=== PATIENT | female | born 1955 | race Caucasian/White ===

== ENCOUNTER 2016-10-31 11:54 | Inpatient (IN) | payer OTHER ==
[~2016-10-31] VITALS: Ht 162.6 cm; Wt 67.4 kg
[~2016-10-31 11:54] MED LIST: AMIT100T2 PO; BUPR-79 PO; IBUP-103 PO
[2016-10-31 12:35] LABS: BASO % 0.5 %; BASO ABS # 0.03 K/uL (0-0.2); COMPLETE YES; EOS % 1.9 %; HEMATOCRIT 42.1 % (37-47); IG% 0.2 %; LYMPH % 27.6 %; LYMPH ABS # 1.62 K/uL (1.2-3.4); MEAN CELL VOLUME 82.5 fL (80-100); MEAN CORPUSCULAR HEMOGLOBIN 26.5 pg (25-34); MEAN CORPUSCULAR HGB CONC 32.1 g/dl (32-36); MEAN PLATELET VOLUME 11.3 fL (7.4-10.4); MONO % 10.1 %; NEUT % 59.7 %; PLATELET COUNT 263 K/uL (130-400); WHITE BLOOD COUNT 5.86 K/uL (4.8-10.8)
[2016-10-31 12:43] LABS: ALT/SGPT 19 U/L (12-78); BLOOD UREA NITROGEN 6 mg/dl (7-18); BUN/CREATININE RATIO 6.6 (10-20); CALCIUM 9.7 mg/dl (8.5-10.1); CARBON DIOXIDE 25 mmol/L (21-32); CHLORIDE 106 mmol/L (98-107); CREATININE 0.88 mg/dl (0.60-1.20); GLUCOSE 87 mg/dl (70-99); POTASSIUM 3.7 mmol/L (3.5-5.1); SODIUM 142 mmol/L (136-145)
[2016-10-31 12:48] LABS: ALKALINE PHOSPHATASE 78 U/L (45-117); AST/SGOT 13 U/L (15-37)
[2016-10-31 12:50] LABS: MANUAL MICROSCOPIC REQUIRED? NO; REVIEW REQ? NO; URINE APPEARANCE CLEAR (CLEAR); URINE BILIRUBIN NEG (NEG); URINE COLOR YELLOW; URINE NITRITE NEG (NEG); URINE SPECIFIC GRAVITY 1.002 (1.000-1.030); UROBILINOGEN NEG (NEG); ZZUR CULT IF INDIC CLEAN CATCH NO
--- NOTE | 2016-10-31 12:54 | DIAGNOSTIC IMAGING REPORT ---
CHEST ONE VIEW PORTABLE CLINICAL HISTORY: multiple falls trauma COMPARISON STUDY: No previous studies for comparison. FINDINGS: The bones soft tissues and hemidiaphragms are normal. The cardiomediastinal silhouette is normal. The lungs are clear. The pulmonary vasculature is normal. IMPRESSION: Negative chest. Electronically signed by: Antwan Ewing M.D. 10/31/2016 12:53 PM Dictated Date/Time: 10/31/2016 12:53 PM
[2016-10-31] MEDS ORDERED: WLLSR/200 PO (12:56)
--- NOTE | 2016-10-31 13:48 | DIAGNOSTIC IMAGING REPORT ---
HEAD CT NONCONTRAST CT DOSE: 537.48 mGy.cm HISTORY: Mental status change confused w/ multiple fall TECHNIQUE: Multiaxial CT images of the head were performed without the use of intravenous contrast. Comparison: None. Findings: The paranasal sinuses and mastoid air cells are clear. The calvarium and skull base are intact. The ventricles and sulci are within normal limits. There is no mass, hematoma, midline shift, or acute infarct. Impression: No acute intracranial abnormality. Electronically signed by: Antwan Ewing M.D. 10/31/2016 1:46 PM Dictated Date/Time: 10/31/2016 1:45 PM
[2016-10-31] MEDS ORDERED: ACETAMINOPHEN 325 MG TAB PO PRN (15:15)
[2016-10-31] MEDS ORDERED: ONDANSETRON INJ 2 MG/ML 2 ML VIAL IV PRN (15:15)
[2016-10-31] MEDS ORDERED: POLYETHYLENE (MIRALAX) 17 GM PACK PO PRN (15:15)
[2016-10-31 15:30] VITALS: O2SAT 94; Ht 162.6 cm; Wt 67.4 kg
[2016-10-31 16:00] VITALS: O2SAT 94
[2016-10-31 16:59] VITALS: BP 142/90; PULSE 80; TEMP 36.6; O2SAT 96
[2016-10-31 16:59] LABS: PROTHROMBIN TIME (PATIENT) 10.4 SECONDS (9.0-12.0)
[2016-10-31] MEDS: ENOXAPARIN 40 MG/0.4 ML SYR SC SCH (18:28)
--- NOTE | 2016-10-31 18:51 | EMERGENCY ROOM VISIT NOTE ---
History Report prepared by Zeus: Ventura eMderos Under the Supervision of: Dr. Davian Brennan D.O. First contact with patient: 12:16 Chief Complaint: NEURO SYMPTOMS Stated Complaint: FALLING DOWN, CONFUSION, SHAKING, TROUBLE W/MEMORY Nursing Triage Summary: pt reports falling yesterday 7 times and feeling dizzy not able to spell or function properly. headache for last couple days intermittently. normally does not have headaches. denies any n/v History of Present Illness The patient is a 61 year old female who presents to the Emergency Room with complaints of persistent neuro symptoms beginning yesterday. She notes that yesterday she was talking with her daughter on the phone and had difficulty concentrating on the subject they were talking about. She admits also having difficulty spelling and felt dizzy at times. She reports falling 7 times yesterday and was "running into things" at work. She notes she fell on her back and not her head, and was able to get herself up after the falls. She was seen by a doctor at [facility] who told her to come to the ER. The patient denies having difficulty speaking, chest pain, shortness of breath, urinary symptoms, nausea, vomiting, or weakness or numbness in her arms or legs. Per the patient' s , she is confused and has difficultly following along in conversation. The patient admits to having sore throats in the morning that resolves throughout the day, and headaches off and on for two weeks. She adds that she does not normally get headaches at baseline. She denies any history of strokes, high cholesterol, and diabetes. Source of History: patient, spouse/significant other Onset: yesterday Position: head Quality: other (neuro symptoms) Timing: other (persistent) Associated Symptoms: + headache, + sorethroat, No SOB, No chest pain, No nausea, No numbness, No urinary symptoms, No vomiting, No weakness Review of Systems See HPI for pertinent positives & negatives. A total of 10 systems reviewed and were otherwise negative. Past Medical & Surgical Medical Problems: (1) Confusion Surgical Problems: (1) S/P cervical spinal fusion Social History Smoking Status: Never Smoker Marital Status: Housing Status: lives with family Occupation Status: disabled Current/Historical Medications Scheduled Amitriptyline Hcl (Elavil), 200 MG PO HS Bupropion Hcl (Wellbutrin Sr), 1 TAB PO BID Allergies Coded Allergies: No Known Allergies (Unverified , 05/14/14) Physical Exam Vital Signs Date Time Temp Pulse Resp B/P Pulse Ox O2 Delivery O2 Flow Rate FiO2 10/31/16 13:46 75 24 135/74 92 Room Air 10/31/16 12:54 76 10/31/16 12:17 77 18 150/88 94 Room Air 10/31/16 12:17 92 Room Air 10/31/16 11:56 36.6 78 18 159/87 94 Room Air Physical Exam GENERAL: Sitting in bed, disheveled, alert, well appearing, well nourished, no distress, non-toxic EYE EXAM: normal conjunctiva, PERRL and EOM's intact EARS: TMs clear bilaterally OROPHARYNX: no exudate, no erythema, lips, buccal mucosa, and tongue normal and mucous membranes are moist NECK: supple, no nuchal rigidity, no adenopathy, non-tender LUNGS: Clear to auscultation. Normal chest wall mechanics HEART: no murmurs, S1 normal and S2 normal ABDOMEN: abdomen soft, non-tender, normo-active bowel sounds, no masses, no rebound or guarding. BACK: Back is symmetrical on inspection and there is no deformity, no midline tenderness, no CVA tenderness. SKIN: no rashes and no bruising UPPER EXTREMITIES: upper extremities are grossly normal. LOWER EXTREMITIES: No pitting edema. NEURO EXAM: Normal sensorium, cranial nerves II-XII grossly intact, normal speech, no gross weakness of arms, no gross weakness of legs. No drift. Finger to nose intact. Gross sensation intact. Rapid alternating movement of upper extremities. Medical Decision & Procedures ER Provider Diagnostic Interpretation: Radiology results have been interpreted by the radiologist and reviewed by me. HEAD CT NONCONTRAST Findings: The paranasal sinuses and mastoid air cells are clear. The calvarium and skull base are intact. The ventricles and sulci are within normal limits. There is no mass, hematoma, midline shift, or acute infarct. Impression: No acute intracranial abnormality. Electronically signed by: Antwan Ewing M.D. 10/31/2016 1:46 PM Dictated Date/Time: 10/31/2016 1:45 PM CHEST ONE VIEW PORTABLE FINDINGS: The bones soft tissues and hemidiaphragms are normal. The cardiomediastinal silhouette is normal. The lungs are clear. The pulmonary vasculature is normal. IMPRESSION: Negative chest. Electronically signed by: Antwan Ewing M.D. 10/31/2016 12:53 PM Dictated Date/Time: 10/31/2016 12:53 PM Laboratory Results 10/31/16 12:11 Red Blood Count 5.10, Mean Corpuscular Volume 82.5, Mean Corpuscular Hemoglobin 26.5, Mean Corpuscular Hemoglobin Concent 32.1, Mean Platelet Volume 11.3, Neutrophils (%) (Auto) 59.7, Lymphocytes (%) (Auto) 27.6, Monocytes (%) (Auto) 10.1, Eosinophils (%) (Auto) 1.9, Basophils (%) (Auto) 0.5, Neutrophils # (Auto ) 3.50, Lymphocytes # (Auto) 1.62, Monocytes # (Auto) 0.59, Eosinophils # (Auto ) 0.11, Basophils # (Auto) 0.03 10/31/16 12:11 Test 10/31/16 12:11 White Blood Count 5.86 K/uL (4.8-10.8) Red Blood Count 5.10 M/uL (4.2-5.4) Hemoglobin 13.5 g/dL (12.0-16.0) Hematocrit 42.1 % (37-47) Mean Corpuscular Volume 82.5 fL (80-100) Mean Corpuscular Hemoglobin 26.5 pg (25-34) Mean Corpuscular Hemoglobin Concent 32.1 g/dl (32-36) Platelet Count 263 K/uL (130-400) Mean Platelet Volume 11.3 fL (7.4-10.4) Neutrophils (%) (Auto) 59.7 % Lymphocytes (%) (Auto) 27.6 % Monocytes (%) (Auto) 10.1 % Eosinophils (%) (Auto) 1.9 % Basophils (%) (Auto) 0.5 % Neutrophils # (Auto) 3.50 K/uL (1.4-6.5) Lymphocytes # (Auto) 1.62 K/uL (1.2-3.4) Monocytes # (Auto) 0.59 K/uL (0.11-0.59) Eosinophils # (Auto) 0.11 K/uL (0-0.5) Basophils # (Auto) 0.03 K/uL (0-0.2) RDW Standard Deviation 46.5 fL (36.4-46.3) RDW Coefficient of Variation 15.3 % (11.5-14.5) Immature Granulocyte % (Auto) 0.2 % Immature Granulocyte # (Auto) 0.01 K/uL (0.00-0.02) Prothrombin Time 10.4 SECONDS (9.0-12.0) Prothromb Time International Ratio 1.0 (0.9-1.1) Activated Partial Thromboplast Time 27.0 SECONDS (21.0-31.0) Partial Thromboplastin Ratio 1.0 Urine Color YELLOW Urine Appearance CLEAR (CLEAR) Urine pH 7.0 (4.5-7.5) Urine Specific [place] 1.002 (1.000-1.030) Urine Protein NEG (NEG) Urine Glucose (UA) NEG (NEG) Urine Ketones NEG (NEG) Urine Occult Blood NEG (NEG) Urine Nitrite NEG (NEG) Urine Bilirubin NEG (NEG) Urine Urobilinogen NEG (NEG) Urine Leukocyte Esterase MODERATE (NEG) Urine WBC (Auto) 1-5 /hpf (0-5) Urine RBC (Auto) 0-4 /hpf (0-4) Urine Hyaline Casts (Auto) 0 /lpf (0-5) Urine Epithelial Cells (Auto) 10-20 /lpf (0-5) Urine Bacteria (Auto) NEG (NEG) Anion Gap 11.0 mmol/L (3-11) Est Creatinine Clear Calc Drug Dose 65.0 ml/min Estimated GFR () 82.8 Estimated GFR (Non- 71.4 BUN/Creatinine Ratio 6.6 (10-20) Calcium Level 9.7 mg/dl (8.5-10.1) Total Bilirubin 0.3 mg/dl (0.2-1) Direct Bilirubin < 0.1 mg/dl (0-0.2) Aspartate Amino Transf (AST/SGOT) 13 U/L (15-37) Alanine Aminotransferase (ALT/SGPT) 19 U/L (12-78) Alkaline Phosphatase 78 U/L (45-117) Troponin I < 0.015 ng/ml (0-0.045) Total Protein 7.9 gm/dl (6.4-8.2) Albumin 4.1 gm/dl (3.4-5.0) Lipase 135 U/L (73-393) Thyroid Stimulating Hormone (TSH) 1.530 uIu/ml (0.300-4.500) Laboratory results per my review. ECG Indication: other (neuro symptoms) Rate (beats per minute): 85 Rhythm: sinus rhythm Findings: left axis deviation, no ectopy ED Course ED COURSE: Vital signs were reviewed and showed normal The patients medical record was reviewed The above diagnostic studies were performed and reviewed. ED treatments and interventions as stated above. 1220: The patient was evaluated in room A12B. A complete history and physical examination was performed. 1414: I reviewed the patient's case with Dr. Nickerson. They will evaluate the patient for further management. 1420: Upon reevaluation, the patient is doing well.I discussed my findings with the patient and she understands and agrees with the treatment plan. Based on the patients age, coexisting illnesses, exam and lab findings the decision to treat as an inpatient was made. The patient remained stable while under my care. The patient will be evaluated for further management. Medical Decision Differential diagnoses includes but is not limited to toxic, metabolic, infectious, traumatic, cardiac, neurologic, hematologic, psychiatric and inflammatory etiologies. Patient is a 61-year-old female who presents the ER for recurrent falls and confusion which has been worsening over the past week. Patient has had 7 falls today. notes that she been very confused cannot follow conversation. This appears to be worsening over the past 3 weeks. She seen by her primary care doctor referred in for possible stroke. Neurologic exam is complete intact. CBC along with BMP, LFTs, bilirubin and troponin are negative. Lipase is unremarkable. TSH was normal. UA has leukocytes of multiple epithelial cells. CT head and chest x-ray were unremarkable. Patient and family were updated in regards to findings. She has been admitted to internal medicine with altered mental status for a complete workup. Consults Time Called: 1410 Consulting Physician: Dr. Nickerson Returned Call: 1414 I reviewed the patient's case with Dr. Nickerson. They will evaluate the patient for further management. Impression Primary Impression: Altered mental status Additional Impression: Ambulatory dysfunction Scribe Attestation The scribe's documentation has been prepared under my direction and personally reviewed by me in its entirety. I confirm that the note above accurately reflects all work, treatment, procedures, and medical decision making performed by me. Departure Information Dispostion Being Evaluated By Hospitalist Referrals No Doctor, Assigned (PCP) Patient Instructions My [facility] Problem Qualifiers Primary Impression: Altered mental status Altered mental status type: unspecified Qualified Codes: R41.82 - Altered mental status, unspecified
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
[2016-10-31 19:29] VITALS: BP 124/71; PULSE 77; TEMP 36.8; O2SAT 93
[2016-10-31] MEDS: AMITRIPTYLINE HCL 100 MG TAB PO SCH (20:34)
[2016-11-01] VITALS (8 sets, daily range): BP systolic 104–133; BP diastolic 54–83; PULSE 66–90; TEMP 36.4–36.7; O2SAT 93–97
[2016-11-01 01:08] LABS: BENZODIAZEPINE, URINE NEG (NEG); COCAINE,URINE NEG (NEG); PHENCYCLIDINE, URINE NEG (NEG)
[2016-11-01 07:26] LABS: HEMATOCRIT 42.3 % (37-47); MEAN CELL VOLUME 82.3 fL (80-100); MEAN CORPUSCULAR HEMOGLOBIN 26.1 pg (25-34); MEAN CORPUSCULAR HGB CONC 31.7 g/dl (32-36); MEAN PLATELET VOLUME 10.7 fL (7.4-10.4); PLATELET COUNT 235 K/uL (130-400); RED BLOOD COUNT 5.14 M/uL (4.2-5.4); WHITE BLOOD COUNT 4.14 K/uL (4.8-10.8)
[2016-11-01 07:55] LABS: BUN/CREATININE RATIO 9.1 (10-20); CALCIUM 8.9 mg/dl (8.5-10.1); CREATININE 0.97 mg/dl (0.60-1.20); POTASSIUM 3.9 mmol/L (3.5-5.1)
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
--- NOTE | 2016-11-01 14:16 | Progress Note ---
Subjective Date of Service: Nov 01, 2016. Subjective Pt evaluation today including: conversation w/ patient, physical exam, chart review, lab review, review of studies, review of inpatient medication list Saw/examined the patient in room 278 She states that she came in because of forgetfulness; confusion; and dizziness with balance issues Upon further questioning she mentions that she thinks her depression is not controlled She is tearful when explaining that her grandson is dating an older lady and she feels overwhelmed by this She takes both Wellbutrin and Amitriptyline consistently Currently denies chest pain/shortness of breath Ambulated with PT/OT and stated she was not very dizzy Eager to go home despite her symptoms not being controlled Problem List Medical Problems: (1) Altered mental status Status: Acute (2) Ambulatory dysfunction Status: Acute Review of Systems Respiratory: No shortness of breath Cardiac: No chest pain Abdomen: No diarrhea, No nausea, No vomiting Neurologic: + balance problems, + vertigo, + weakness, No memory loss, No numbness/tingling, No paralysis Psychiatric: + anhedonism, + anxiety, + depression symptoms, No insomnia, No substance abuse Heme: No abnormal bleeding/bruising Medications Current Inpatient Medications Medications (Trade) Dose Ordered Sig/Darby Route Start Time Stop Time Status Last Admin Dose Admin Enoxaparin Sodium (Lovenox Inj) 40 mg Q24H SC 10/31/16 18:00 11/30/16 17:59 10/31/16 18:28 40 MG Acetaminophen (Tylenol Tab) 650 mg Q4H PRN PO 10/31/16 15:15 11/30/16 15:14 10/31/16 19:29 650 MG Ondansetron HCl (Zofran Inj) 4 mg Q6H PRN IV 10/31/16 15:15 11/30/16 15:14 Polyethylene (Miralax Powder Packet) 17 gm DAILY PRN PO 10/31/16 15:15 11/30/16 15:14 Amitriptyline HCl (Elavil Tab) 100 mg HS PO 10/31/16 21:00 11/30/16 20:59 10/31/16 20:34 100 MG Objective Vital Signs Date Time Temp Pulse Resp B/P Pulse Ox O2 Delivery O2 Flow Rate FiO2 11/01/16 12:00 Room Air 11/01/16 11:47 36.7 76 18 109/73 95 11/01/16 11:03 76 95 11/01/16 08:00 Room Air 11/01/16 07:20 36.6 68 18 133/83 95 11/01/16 04:00 Room Air 11/01/16 03:00 36.6 66 18 107/63 97 Room Air 11/01/16 00:00 Room Air 11/01/16 00:00 36.5 72 16 127/79 94 Room Air 10/31/16 20:00 Room Air 10/31/16 19:29 36.8 77 20 124/71 93 Room Air 10/31/16 16:59 36.6 80 18 142/90 96 Room Air 10/31/16 16:04 76 16 150/91 94 Room Air 10/31/16 16:00 94 Room Air 10/31/16 15:30 94 Room Air 10/31/16 15:22 75 22 156/87 95 Room Air Physical Exam General Appearance: no apparent distress, + pertinent finding (tearful during exam when recalling events that made her depressed; comfortable in a chair) Respiratory/Chest: lungs clear, normal breath sounds, no respiratory distress, no accessory muscle use Cardiovascular: regular rate, rhythm, no edema, no murmur Abdomen: normal bowel sounds, non tender, soft Extremities: normal inspection, no pedal edema Neurologic/Psychiatric: alert, oriented x 3, + depressed affect, + pertinent finding (oriented x 3, though at times forgetful) Laboratory Results Last 24 Hours Test 11/01/16 00:16 11/01/16 07:00 Urine Opiates Screen NEG Urine Methadone, Qualitative NEG Urine Barbiturates NEG Urine Phencyclidine (PCP) Level NEG Ur Amphetamine/Methamphetamine NEG MDMA (Ecstasy) Screen POS Urine Benzodiazepines Screen NEG Urine Cocaine Metabolite NEG Urine Marijuana (THC) POS White Blood Count 4.14 K/uL Red Blood Count 5.14 M/uL Hemoglobin 13.4 g/dL Hematocrit 42.3 % Mean Corpuscular Volume 82.3 fL Mean Corpuscular Hemoglobin 26.1 pg Mean Corpuscular Hemoglobin Concent 31.7 g/dl RDW Standard Deviation 46.3 fL RDW Coefficient of Variation 15.3 % Platelet Count 235 K/uL Mean Platelet Volume 10.7 fL Sodium Level 141 mmol/L Potassium Level 3.9 mmol/L Chloride Level 105 mmol/L Carbon Dioxide Level 29 mmol/L Anion Gap 7.0 mmol/L Blood Urea Nitrogen 9 mg/dl Creatinine 0.97 mg/dl Est Creatinine Clear Calc Drug Dose 59.0 ml/min Estimated GFR () 73.6 Estimated GFR (Non- 63.5 BUN/Creatinine Ratio 9.1 Random Glucose 86 mg/dl Calcium Level 8.9 mg/dl Assessment and Plan This is a 61 year old female with PMH of depression/anxiety presents with dizziness/confusion Altered Mental Status Gait Abnormality PT/OT ordered for her gait abnormality/dizziness which seems to be improving seems to be more of a psychiatric issue going on Going through records, it seems like she has tried SSRIs in the past, but had side effects including decreased libido Has been using Elavil and Wellbutrin will consult psych for medication reconciliation as these medications are not controlling her depression appreciate neurology input MRI ordered and pending Mood Disorder see above, will consult psych for now, holding Elavil and continue Wellbutrin tearful during exam, depression is not controlled Syncopal Episodes monitor in tele check MRI as per neurology PT/OT likely a manifestation of depression DVT ppx Lovenox DNR
[2016-11-01] MEDS ORDERED: GADAVIST IV PRN (17:45)
--- NOTE | 2016-11-01 17:48 | DIAGNOSTIC IMAGING REPORT ---
MRI OF THE BRAIN WITHOUT AND WITH IV CONTRAST CLINICAL HISTORY: new onset dystaxia and falls with depression mental status change COMPARISON STUDY: No previous studies for comparison. TECHNIQUE: Utilizing a 1.5 Ghislaine magnet and dedicated coil, multiplanar, multiecho imaging of the brain was performed pre and postcontrast administration. IV administration of 7 mL of Gadavist contrast was uneventful. FINDINGS: Normal signal characteristics the cerebellar as well as cerebral hemispheres. Ventricular system is midline. Sella and parasellar region are unremarkable. There is no evidence for abnormal postcontrast enhancement. IMPRESSION: Normal study Electronically signed by: Antwan Ewing M.D. 11/01/2016 5:46 PM Dictated Date/Time: 11/01/2016 5:43 PM
[2016-11-01] MEDS: ENOXAPARIN 40 MG/0.4 ML SYR SC SCH (18:20)
--- NOTE | 2016-11-01 18:42 | Psychiatric Consultation ---
Consultation Identifying Data 61 yo female Chief Complaint "Falls and confused". History of Present Illness 61 yo female who reports that she has been on Elavil 200mg at bedtime for several years and more recently started on Wellbutrin SR 150mg twice daily by J[facility] Hernandez at [facility]. At the end of July or early August she began to experience increased anger and irritability and Wellbutrin SR was increased to 200mg twice daily. For the past week patient has been feeling more confused and on day leading up to hospitalization had several falls. Mood has been aggravated over the past several months by stress of 23yo grandson dating a 41yo female and patient did not approve of relationship. Patient had raised grandson as her own son after her own son was murdered 21 years ago. Patient admits that she has taken an extra 100mg of Elavil at bedtime 1 to 2 times per week for the past few months to help with sleep. She consumes 6 to 7 cups of tea per morning each with several teaspoons of sugar and 6 cans of soda per night. Quit smoking 3 weeks ago. Denies any thoughts to harm herself or others. Denies any auditory or visual hallucinations or paranoia. Past Psychiatric History Current OP Treatment: no current treatment Prior OP Treatment: no prior treatment Past Medical/Surgical History History of Obesity: No History of HTN: No History of Diabetes: No History of Heart Disease: No History of Dyslipidemia: No History of Concussion/Seizure: No Problem List: Allergies Allergies: Coded Allergies: No Known Allergies (Unverified , 05/14/14) Home Medications Scheduled Amitriptyline Hcl (Elavil), 200 MG PO HS Bupropion Hcl (Wellbutrin Sr), 1 TAB PO BID Family History No family history of psychiatric problems or suicide attempts or substance abuse problems. 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 Relationship History: Children: 1 daughter who lives in [place]. Son murdered 21 years ago. Legal History: none Abuse History: none Review of Systems Constitutional: no symptoms reported Eyes: reports: no symptoms ENT: reports: no symptoms reported Cardiovascular: reports: no symptoms reported Respiratory: reports: no symptoms reported Gastrointestinal: no symptoms reported Genitourinary - Female: reports: no symptoms Musculoskeletal: no symptoms reported Neurologic: reports: dizziness Endocrine: no symptoms Hematologic / Lymphatic: no symptoms Examination Vital Signs Vital Signs Past 12 Hours Date Time Temp Pulse Resp B/P Pulse Ox O2 Delivery O2 Flow Rate FiO2 11/01/16 15:20 36.6 90 18 111/78 93 Room Air 11/01/16 12:00 Room Air 11/01/16 11:47 36.7 76 18 109/73 95 11/01/16 11:03 76 95 11/01/16 08:00 Room Air 11/01/16 07:20 36.6 68 18 133/83 95 11/01/16 04:00 Room Air Laboratory Results Last 24 Hours Test 11/01/16 00:16 11/01/16 07:00 Urine Opiates Screen NEG Urine Methadone, Qualitative NEG Urine Barbiturates NEG Urine Phencyclidine (PCP) Level NEG Ur Amphetamine/Methamphetamine NEG MDMA (Ecstasy) Screen POS Urine Benzodiazepines Screen NEG Urine Cocaine Metabolite NEG Urine Marijuana (THC) POS White Blood Count 4.14 K/uL Red Blood Count 5.14 M/uL Hemoglobin 13.4 g/dL Hematocrit 42.3 % Mean Corpuscular Volume 82.3 fL Mean Corpuscular Hemoglobin 26.1 pg Mean Corpuscular Hemoglobin Concent 31.7 g/dl RDW Standard Deviation 46.3 fL RDW Coefficient of Variation 15.3 % Platelet Count 235 K/uL Mean Platelet Volume 10.7 fL Sodium Level 141 mmol/L Potassium Level 3.9 mmol/L Chloride Level 105 mmol/L Carbon Dioxide Level 29 mmol/L Anion Gap 7.0 mmol/L Blood Urea Nitrogen 9 mg/dl Creatinine 0.97 mg/dl Est Creatinine Clear Calc Drug Dose 59.0 ml/min Estimated GFR () 73.6 Estimated GFR (Non- 63.5 BUN/Creatinine Ratio 9.1 Random Glucose 86 mg/dl Calcium Level 8.9 mg/dl Mental Examination During interview pt is: alert and oriented, cooperative Appearance: appropriately dressed, appropriately groomed, appeared stated age Eye contact is: good Motor behavior is: no abnormal motor movements Speech: normal in rate, rhythm & volume Affect: mood congruent Mood is: depressed, anxious Thought process: goal directed, clear, coherent Thought content: reality based without delusions Suicidal thought are: denied Homicidal thoughts are: denied Hallucinations: denies auditory, denies visual Cognition: memory grossly intact, attention grossly intact, language grossly intact Intelligence estimated to be: average Insight: fair Judgement: fair Impression / Recommendations Impression 61 year old female with history of depression and anxiety. Recent onset of confusion and falls likely coincides with multiple variables. Admits to taking extra 100mg doses of Amitriptyline to help sleep at least 1 to 2 times per week for the past few months. Significant anxiety over the past few months triggered by stress of relationship that 23yo grandson has been in with 41yo female that recently ended. Excessive caffeine consumption - 6 to 7 cups of tea per morning and 6 cans of soda per night. Recent addition of Wellbutrin 150mg twice daily which was increased 6 weeks ago to 200mg twice daily which can interact with Amitriptyline (increased blood level) through Cytochrome P450 mechanism as well as stopping smoking 3 weeks ago (nicotine suppresses Amitriptyline levels). Risk Factors Assessment : Yes Health problems: Yes Smoker: No Protective Factors Assessment : Yes Employed: Yes Stable relationships: Yes Recommendations Reviewed recommendations with patient and Dr. Hunt. -Lexapro 10mg daily to address depression and anxiety (to replace Wellbutrin which has been discontinued). - Continue lower dose of Amitriptyline at 100mg at bedtime as a compromise with patient as she is fearful of not sleeping without it as she has been on it for several years but discussed special education paraeducator plan of gradually tapering off as depression and anxiety controlled by Lexapro and reviewed anticholinergic side effects that this medication may cause and patient being more prone to these problems as age advances. -Discussed stimulatory effects of caffeine with patient and how this may contribute to her anxiety and problems sleeping and plan to gradually taper off and possible withdrawal symptoms.
[2016-11-01] MEDS: AMITRIPTYLINE HCL 100 MG TAB PO SCH (21:04)
[2016-11-02] VITALS: O2SAT 95
[2016-11-02 03:56] VITALS: BP 100/61; PULSE 66; TEMP 36.3; O2SAT 94
[2016-11-02 06:36] LABS: HEMATOCRIT 42.7 % (37-47); MEAN CELL VOLUME 83.7 fL (80-100); MEAN CORPUSCULAR HEMOGLOBIN 26.9 pg (25-34); MEAN CORPUSCULAR HGB CONC 32.1 g/dl (32-36); MEAN PLATELET VOLUME 11.2 fL (7.4-10.4); PLATELET COUNT 236 K/uL (130-400); WHITE BLOOD COUNT 5.23 K/uL (4.8-10.8)
[2016-11-02 07:14] LABS: BUN/CREATININE RATIO 11.7 (10-20); CALCIUM 9.4 mg/dl (8.5-10.1); CREATININE 1.1 mg/dl (0.60-1.20); POTASSIUM 4.3 mmol/L (3.5-5.1)
[2016-11-02 08:29] VITALS: BP 101/65; PULSE 72; TEMP 36.4; O2SAT 94
--- NOTE | 2016-11-02 08:38 | Progress Note ---
Subjective Date of Service: Nov 02, 2016. Subjective Pt evaluation today including: conversation w/ patient, physical exam, lab review, review of studies, review of inpatient medication list Saw/examined the patient in room 278 She is doing well today Slept well overnight with no problems/issues Denies any dizziness Very eager to get home today Problem List Medical Problems: (1) Altered mental status Status: Acute (2) Ambulatory dysfunction Status: Acute Review of Systems Constitutional: No weakness Respiratory: No shortness of breath Cardiac: No chest pain Neurologic: No balance problems (improved), No vertigo Psychiatric: + anxiety, + depression symptoms, + insomnia (controlled with medications) Heme: No abnormal bleeding/bruising Medications Current Inpatient Medications Medications (Trade) Dose Ordered Sig/Darby Route Start Time Stop Time Status Last Admin Dose Admin Enoxaparin Sodium (Lovenox Inj) 40 mg Q24H SC 10/31/16 18:00 11/30/16 17:59 11/01/16 18:20 40 MG Acetaminophen (Tylenol Tab) 650 mg Q4H PRN PO 10/31/16 15:15 11/30/16 15:14 10/31/16 19:29 650 MG Ondansetron HCl (Zofran Inj) 4 mg Q6H PRN IV 10/31/16 15:15 11/30/16 15:14 Polyethylene (Miralax Powder Packet) 17 gm DAILY PRN PO 10/31/16 15:15 11/30/16 15:14 Amitriptyline HCl (Elavil Tab) 100 mg HS PO 10/31/16 21:00 11/30/16 20:59 11/01/16 21:04 100 MG Gadobutrol (Gadavist) 7 mmol UD PRN IV 11/01/16 17:45 11/05/16 17:44 Escitalopram Oxalate (Lexapro Tab) 10 mg QAM PO 11/02/16 09:00 12/02/16 08:59 Objective Vital Signs Date Time Temp Pulse Resp B/P Pulse Ox O2 Delivery O2 Flow Rate FiO2 11/02/16 08:29 36.4 72 16 101/65 94 Room Air 11/02/16 04:00 Room Air 11/02/16 03:56 36.3 66 16 100/61 94 Room Air 11/02/16 00:00 95 Room Air 11/01/16 23:57 36.4 71 20 104/63 94 Room Air 11/01/16 20:00 Room Air 11/01/16 20:00 36.5 78 20 108/74 94 Room Air 11/01/16 16:00 Room Air 11/01/16 15:20 36.6 90 18 111/78 93 Room Air 11/01/16 12:00 Room Air 11/01/16 11:47 36.7 76 18 109/73 95 11/01/16 11:03 76 95 Physical Exam General Appearance: no apparent distress Respiratory/Chest: lungs clear, normal breath sounds, no respiratory distress, no accessory muscle use Cardiovascular: regular rate, rhythm, no edema, no murmur Abdomen: normal bowel sounds, non tender, soft Extremities: normal inspection, no pedal edema Neurologic/Psychiatric: no motor/sensory deficits, alert, normal mood/affect Skin: normal color Laboratory Results Last 24 Hours Test 11/02/16 06:08 White Blood Count 5.23 K/uL Red Blood Count 5.10 M/uL Hemoglobin 13.7 g/dL Hematocrit 42.7 % Mean Corpuscular Volume 83.7 fL Mean Corpuscular Hemoglobin 26.9 pg Mean Corpuscular Hemoglobin Concent 32.1 g/dl RDW Standard Deviation 47.3 fL RDW Coefficient of Variation 15.4 % Platelet Count 236 K/uL Mean Platelet Volume 11.2 fL Sodium Level 142 mmol/L Potassium Level 4.3 mmol/L Chloride Level 105 mmol/L Carbon Dioxide Level 31 mmol/L Anion Gap 6.0 mmol/L Blood Urea Nitrogen 13 mg/dl Creatinine 1.10 mg/dl Est Creatinine Clear Calc Drug Dose 51.3 ml/min Estimated GFR () 63.2 Estimated GFR (Non- 54.5 BUN/Creatinine Ratio 11.7 Random Glucose 87 mg/dl Calcium Level 9.4 mg/dl Assessment and Plan This is a 61 year old female with PMH of depression/anxiety presents with dizziness/confusion Altered Mental Status Gait Abnormality 11/02 likely related to anticholinergic side effects of Amitriptyline and interaction with Wellbutrin appreciate psych input; Wellbutrin has been d/c'd Lexapro started; decreased dose of amitriptyline - this is a medication that should be tapered off to f/u with outpatient psychiatry MRI was performed and negative appreciate neurology input Plan is to discharge the patient home today 3/19 PT/OT ordered for her gait abnormality/dizziness which seems to be improving seems to be more of a psychiatric issue going on Going through records, it seems like she has tried SSRIs in the past, but had side effects including decreased libido Has been using Elavil and Wellbutrin will consult psych for medication reconciliation as these medications are not controlling her depression appreciate neurology input MRI ordered and pending Mood Disorder 11/02 new regimen of Lexapro and amitriptyline nocturnally 11/01 see above, will consult psych for now, holding Elavil and continue Wellbutrin tearful during exam, depression is not controlled Syncopal Episodes 11/02 MRI = negative no findings on tele dizziness/falls likely due to overmedication with anti-depressants 11/01 monitor in tele check MRI as per neurology PT/OT likely a manifestation of depression DVT ppx Lovenox DNR
[2016-11-02] MEDS ORDERED: LXP10 PO (08:57)
[2016-11-02] MEDS ORDERED: AMT100 PO (08:57)
--- NOTE | 2016-11-02 08:59 | Discharge Instructions ---
Discharge Instructions Date of Service Nov 02, 2016. Admission Reason for Admission: Confusion Discharge Discharge Diagnosis / Problem: Confusion/Dizziness - polypharmacy related Discharge Goals Goal(s): Decrease discomfort, Improve function, Diagnostic testing, Therapeutic intervention Activity Recommendations Activity Limitations: resume your previous activity . Instructions / Follow-Up Instructions / Follow-Up Please follow-up with Dr. Fritz on November 05 @ 1:10PM * You will be prescribed Lexapro 10mg daily - this was sent to your pharmacy * You are to stop taking Wellbutrin * Only take Amitriptyline 100mg at night - and this should be tapered off as per primary care * You should have an outpatient psychiatrist to manage these medications Current Hospital Diet Patient's current hospital diet: Regular Diet Discharge Diet Recommended Diet: Regular Diet Pending Studies Studies pending at discharge: no Medical Emergencies . Who to Call and When: Medical Emergencies: If at any time you feel your situation is an emergency, please call 911 immediately. . Non-Emergent Contact Non-Emergency issues call your: Primary Care Provider . . "Provider Documentation" section prepared by Berenice Hunt. VTE Core Measure Inpt VTE Proph given/why not?: Enoxaparin (Lovenox)SQ
[2016-11-02] MEDS ORDERED: ESCITALOPRAM OXALATE 10 MG TAB PO SCH (09:00)
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
[2016-11-02 09:10] VITALS: BP 101/65; PULSE 72; TEMP 36.4; O2SAT 94
--- NOTE | 2016-11-02 10:08 | Psychiatric Progress Notes ---
Psychiatric Progress Note Date of Service Nov 02, 2016. Notes attempted to see patient but she was not in room, discharging later this am, liaison to offer to assist with psych referral if patient desires and also instruct on helping to oversee medications so doesn't take extra and experience side effects. Sleep likely to improve off of Wellbutrin. Wellbutrin discontinued in favor of Lexapro, agree with plan to taper Elavil.
== END 2016-11-02 10:40 | disposition home or self-care (01) | DRG 880 ==
LOC: ENRESERVTM → ENRESERVDT → C.EDB 11:55 → C.MED 15:09
PROVIDERS: ADMIT Internal Medicine; ATTEND Family Medicine
DX: F41.1 Generalized anxiety disorder (principal); Z66 Do not resuscitate; T43.015A Adverse effect of tricyclic antidepressants, initial encounter; Y92.9 Unspecified place or not applicable; R26.9 Unspecified abnormalities of gait and mobility

== ENCOUNTER 2017-08-17 15:47 | Emergency (ER) | payer OTHER ==
[~2017-08-17] VITALS: Ht 162.6 cm; Wt 71.0 kg
[~2017-08-17 15:47] MED LIST changes: -AMIT100T2 PO; +AMT100 PO; -BUPR-79 PO; -IBUP-103 PO; +LXP10 PO
[2017-08-17 16:04] VITALS: TEMP 36.7; Ht 162.6 cm; Wt 71.0 kg
[2017-08-17] MEDS ORDERED: MoRPHine SULFATE 4 MG/ML 1 ML CARP\\VIAL IV STA (16:11)
[2017-08-17] MEDS ORDERED: SODIUM CHLORIDE 0.9% 500ML 500 ML IV STA (16:11)
--- NOTE | 2017-08-17 16:24 | EMERGENCY ROOM VISIT NOTE ---
History First contact with patient: 16:08 Chief Complaint: KIDNEY STONE Stated Complaint: KIDNEY STONES History of Present Illness The patient is a 61 year old female who presents to the Emergency Room via private vehicle with complaints of "R flank pain". The patient states that this past Wednesday she was taking down her [place] decorations and developed right-sided flank pain rated as a 7/10. She notes is been worsening since that time he spoke with her family doctor who recommended she come here for evaluation of a suspected kidney stone. She has no history of kidney stones. She denies any chest pain, shortness of breath, leg swelling, recent long travel , dysuria or blood in her urine. Review of Systems A complete 10-point Review of Systems was discussed with the patient, with pertinent positives and negatives listed in the History of Present Illness. All remaining Review of Systems questions can be considered negative unless otherwise specified. Past Medical/Surgical History Medical Problems: (1) Confusion Surgical Problems: (1) S/P cervical spinal fusion Family History Noncontributory Social History Smoking Status: Never Smoker Marital Status: Housing Status: lives with family Occupation Status: disabled Current/Historical Medications Scheduled Amitriptyline Hcl (Elavil), 200 MG PO HS Escitalopram Oxalate (Lexapro), 20 MG PO QAM Scheduled PRN Oxycodone Ir (Roxicodone Ir), 1-2 TAB PO Q4H PRN for Pain Physical Exam Vital Signs Date Time Temp Pulse Resp B/P (MAP) Pulse Ox O2 Delivery O2 Flow Rate FiO2 08/17/17 17:50 71 20 151/98 97 Room Air 08/17/17 16:04 36.7 74 20 129/78 94 Room Air Physical Exam VITAL SIGNS - Vital signs and nursing notes were reviewed. Stable. Afebrile. GENERAL -61-year-old female appearing her stated age who is in no acute distress. Communicates well with provider and answers questions appropriately. SKIN - Without rashes. No petechial rashes. HEAD - NC/AT. LUNGS - Chest wall symmetric without accessory muscle use, intercostals retractions, or central cyanosis. Normal vesicular breath sounds CTA B/L. No wheezes, rales, or rhonchi appreciated. CARDIAC - RRR with S1/S2. No murmur, rubs, or gallops appreciated. ABDOMEN - Abdominal contour normal without pulsations or visible masses. BS normoactive all four quadrants. No tenderness, palpable masses, hepatosplenomegaly, or ascites noted. R CVA tenderness. R paraspinal muscular tenderness of Lumbar spine. EXTREMITIES - No clubbing or peripheral cyanosis. No pretibial edema present. +5 /5 strength noted in UE/LE bilaterally. Medical Decision & Procedures ER Provider Diagnostic Interpretation: ABD/PELVIS WITHOUT FOR STONE CT DOSE: 1202.64 mGy.cm HISTORY: Flank pain R flank pain TECHNIQUE: Multiaxial CT images of the abdomen and pelvis were performed without the use of intravenous and oral contrast according to the standard department stone protocol. A dose lowering technique was utilized adhering to the principles of ALARA. COMPARISON STUDY: 09/28/2009 FINDINGS: Minimal dependent atelectasis. 4.2 cm medial right hepatic lobe cyst. Liver otherwise is uniform. The pancreas is uniform throughout. Left kidney is negative for calcification or hydronephrosis. The adrenal glands bilaterally are normal. The right kidney is negative for calcification or hydronephrosis. Bladder is midline. The bowel pattern is nonobstructive. The appendix is normal. IMPRESSION: 1. 4.2 cm hepatic cyst. 2. Otherwise negative abdomen and pelvis. The above report was generated using voice recognition software. It may contain grammatical, syntax or spelling errors. Electronically signed by: Antwan Ewing M.D. 08/17/2017 5:01 PM Dictated Date/Time: 08/17/2017 4:56 PM Laboratory Results 08/17/17 16:30 Red Blood Count 5.14, Mean Corpuscular Volume 83.1, Mean Corpuscular Hemoglobin 27.0, Mean Corpuscular Hemoglobin Concent 32.6, Mean Platelet Volume 10.6, Neutrophils (%) (Auto) 51.9, Lymphocytes (%) (Auto) 38.2, Monocytes (%) (Auto) 7.0, Eosinophils (%) (Auto) 1.7, Basophils (%) (Auto) 0.6, Neutrophils # (Auto) 3.26, Lymphocytes # (Auto) 2.40, Monocytes # (Auto) 0.44, Eosinophils # (Auto) 0.11, Basophils # (Auto) 0.04 08/17/17 16:30 Test 08/17/17 16:15 08/17/17 16:30 Urine Color YELLOW Urine Appearance CLEAR (CLEAR) Urine pH 6.5 (4.5-7.5) Urine Specific [place] 1.008 (1.000-1.030) Urine Protein NEG (NEG) Urine Glucose (UA) NEG (NEG) Urine Ketones NEG (NEG) Urine Occult Blood NEG (NEG) Urine Nitrite NEG (NEG) Urine Bilirubin NEG (NEG) Urine Urobilinogen NEG (NEG) Urine Leukocyte Esterase NEG (NEG) White Blood Count 6.29 K/uL (4.8-10.8) Red Blood Count 5.14 M/uL (4.2-5.4) Hemoglobin 13.9 g/dL (12.0-16.0) Hematocrit 42.7 % (37-47) Mean Corpuscular Volume 83.1 fL (80-100) Mean Corpuscular Hemoglobin 27.0 pg (25-34) Mean Corpuscular Hemoglobin Concent 32.6 g/dl (32-36) Platelet Count 255 K/uL (130-400) Mean Platelet Volume 10.6 fL (7.4-10.4) Neutrophils (%) (Auto) 51.9 % Lymphocytes (%) (Auto) 38.2 % Monocytes (%) (Auto) 7.0 % Eosinophils (%) (Auto) 1.7 % Basophils (%) (Auto) 0.6 % Neutrophils # (Auto) 3.26 K/uL (1.4-6.5) Lymphocytes # (Auto) 2.40 K/uL (1.2-3.4) Monocytes # (Auto) 0.44 K/uL (0.11-0.59) Eosinophils # (Auto) 0.11 K/uL (0-0.5) Basophils # (Auto) 0.04 K/uL (0-0.2) RDW Standard Deviation 47.4 fL (36.4-46.3) RDW Coefficient of Variation 15.5 % (11.5-14.5) Immature Granulocyte % (Auto) 0.6 % Immature Granulocyte # (Auto) 0.04 K/uL (0.00-0.02) Anion Gap 5.0 mmol/L (3-11) Est Creatinine Clear Calc Drug Dose 65.7 ml/min Estimated GFR () 82.8 Estimated GFR (Non- 71.4 BUN/Creatinine Ratio 10.1 (10-20) Calcium Level 9.5 mg/dl (8.5-10.1) Total Bilirubin 0.3 mg/dl (0.2-1) Aspartate Amino Transf (AST/SGOT) 18 U/L (15-37) Alanine Aminotransferase (ALT/SGPT) 29 U/L (12-78) Alkaline Phosphatase 72 U/L (45-117) Total Protein 8.4 gm/dl (6.4-8.2) Albumin 4.1 gm/dl (3.4-5.0) Globulin 4.3 gm/dl (2.5-4.0) Albumin/Globulin Ratio 1.0 (0.9-2) Medications Administered Medications (Trade) Dose Ordered Sig/[place] Route Start Time Stop Time Status Last Admin Dose Admin Sodium Chloride 500 ml @ 999 mls/hr Q31M STAT IV 08/17/17 16:11 08/17/17 16:41 DC 08/17/17 16:29 999 MLS/HR Morphine Sulfate (MoRPHine SULFATE INJ) 4 mg NOW STAT IV 08/17/17 16:11 08/17/17 16:18 DC 08/17/17 16:29 4 MG Medical Decision Patient was seen and evaluated as above. IV access was initiated, the above workup was performed. She presents to us today with right-sided flank pain. She was referred her by the family doctor concern for a kidney stone. CT scan of the abdomen and pelvis were performed with results as above. Hepatic cyst and otherwise negative. No leukocytosis. Kidney function is okay. Urine is negative. I suspect she has a muscle strain as clinically there is reproducible pain upon palpation of the right paraspinous musculature. She'll be treated with oxycodone as an outpatient and was given morphine here for pain. She was thoroughly educated upon management, as well as to return if she has chest pain, shortness of breath or inspiratory chest pain. She denied inspiratory chest pain. It is worse with movements. She was educated upon management, educated upon worrisome symptoms in which to return, had questions answered prior to discharge, and was discharged home in good condition. In evaluation treatment this patient the following differential diagnoses were entertained: Lumbar strain, renal calculi, appendicitis, diverticulitis, PE, among others. Patient medication list was reviewed, and after review decision was made to not give her Flexeril over concern for serotonin syndrome. Patient's blood pressure was slightly elevated today believed secondary to her pain. Impression Primary Impression: Right flank pain Additional Impression: Strain of lumbar paraspinous muscle Departure Information Dispostion Home / Self-Care Condition GOOD Prescriptions Oxycodone Ir (Roxicodone Ir) 5 Mg Tab 1-2 TAB PO Q4H Y for Pain, #20 TAB For Initial Treatment Prov: Ty Greer PA-C 08/17/17 Referrals Rafael Fritz M.D. (PCP) Patient Instructions My [facility] Additional Instructions You have been treated in the Emergency Department for Back Pain. You have received pain medicine in the emergency department which impairs your ability to operate a vehicle. It is illegal for you to drive after receiving these medicines. You have been prescribed Oxy IR to be used for pain control. Start with 1 tablet every 6 hours. This is a narcotic medication. You cannot drive or consume alcohol while on this medicine. This medicine should only be used for pain that cannot be controlled with [id number] pain medicines. For pain control, you can use the following [id number] medicines (if >12 yo): - Regular strength (325mg/tab) Tylenol (acetaminophen) 2 tabs every 4-6 hours as needed. Do not exceed 12 tablets in a 24 hour period. Avoid taking more than 3 grams (3000 mg) of Tylenol per day. This includes any other sources of acetaminophen you may take on a regular basis. - Regular strength (200 mg/tab) Advil (ibuprofen) 1-2 tabs every 4-6 hours as needed. Do not exceed a dose of 3200 mg per day. If this is an acute injury, ice can be applied to the area of pain for the first 3 days to help decrease pain and inflammation. After the first 3 days, a heating pad can be used over the area for continued soothing relief. You should schedule a follow-up appointment in 2-3 days with your Primary Care Provider for further evaluation and treatment of your back pain. Return to the Emergency Department if your current symptoms worsen despite treatment course outlined above, or if you develop any of the following symptoms : intractable pain despite aforementioned treatment course, loss of control of your bowel or bladder, numbness or tingling in your groin, or development of a fever. Problem Qualifiers
[2017-08-17 16:45] LABS: BASO % 0.6 %; BASO ABS # 0.04 K/uL (0-0.2); EOS % 1.7 %; EOS ABS # 0.11 K/uL (0-0.5); HEMATOCRIT 42.7 % (37-47); HEMOGLOBIN 13.9 g/dL (12.0-16.0); IG# 0.04 K/uL (0.00-0.02); LYMPH % 38.2 %; MEAN CELL VOLUME 83.1 fL (80-100); MEAN CORPUSCULAR HGB CONC 32.6 g/dl (32-36); MEAN PLATELET VOLUME 10.6 fL (7.4-10.4); MONO ABS # 0.44 K/uL (0.11-0.59); NEUT % 51.9 %; NEUT ABS # 3.26 K/uL (1.4-6.5); PLATELET COUNT 255 K/uL (130-400); RED CELL DISTRIBUTION WIDTH CV 15.5 % (11.5-14.5); RED CELL DISTRIBUTION WIDTH SD 47.4 fL (36.4-46.3); WHITE BLOOD COUNT 6.29 K/uL (4.8-10.8)
--- NOTE | 2017-08-17 17:02 | DIAGNOSTIC IMAGING REPORT ---
ABD/PELVIS WITHOUT FOR STONE CT DOSE: 1202.64 mGy.cm HISTORY: Flank pain R flank pain TECHNIQUE: Multiaxial CT images of the abdomen and pelvis were performed without the use of intravenous and oral contrast according to the standard department stone protocol. A dose lowering technique was utilized adhering to the principles of ALARA. COMPARISON STUDY: 09/28/2009 FINDINGS: Minimal dependent atelectasis. 4.2 cm medial right hepatic lobe cyst. Liver otherwise is uniform. The pancreas is uniform throughout. Left kidney is negative for calcification or hydronephrosis. The adrenal glands bilaterally are normal. The right kidney is negative for calcification or hydronephrosis. Bladder is midline. The bowel pattern is nonobstructive. The appendix is normal. IMPRESSION: 1. 4.2 cm hepatic cyst. 2. Otherwise negative abdomen and pelvis. The above report was generated using voice recognition software. It may contain grammatical, syntax or spelling errors. Electronically signed by: Antwan Ewing M.D. 08/17/2017 5:01 PM Dictated Date/Time: 08/17/2017 4:56 PM
[2017-08-17 17:12] LABS: ALBUMIN 4.1 gm/dl (3.4-5.0); CALCIUM 9.5 mg/dl (8.5-10.1); CREATININE 0.88 mg/dl (0.60-1.20); POTASSIUM 3.8 mmol/L (3.5-5.1)
[2017-08-17] MEDS ORDERED: ESCI1TAB10 PO (17:13)
[2017-08-17] MEDS ORDERED: AMIT100T2 PO (17:13)
[2017-08-17 17:15] LABS: TOTAL PROTEIN 8.4 gm/dl (6.4-8.2)
[2017-08-17] MEDS ORDERED: OXYC1TAB3 PO (17:45)
[2017-08-17 17:50] VITALS: BP 151/98; PULSE 71; O2SAT 97
== END 2017-08-17 18:16 | disposition home or self-care (01) ==
LOC: C.EDB 15:48 → C.EDC 18:16
DX: S39.012A Strain of muscle, fascia and tendon of lower back, initial encounter (principal); X58.XXXA Exposure to other specified factors, initial encounter; Z98.1 Arthrodesis status; Z79.899 Other long term (current) drug therapy

== ENCOUNTER 2024-03-26 18:44 | Inpatient (IN) ==
--- NOTE | 2024-03-26 19:04 | Emergency Department Note ---
Impression & Plan Abdominal pain, Acute pancreatitis ED Provider Note NAME: SILVER JEROME AGE: 68 SEX: F : 1955 ARRIVES VIA: Walk-In INFORMANT: Patient ED PROVIDER(S): Davian Brennan DO CHIEF COMPLAINT: Nausea vomiting and diarrhea HPI: Patient is a 68-year-old female with a past medical history of anxiety and colitis who presents to the ER for nausea, vomiting, and diarrhea. This started this Wednesday. She notes the vomiting has stopped yesterday. She is able to keep fluids down. She still is having diarrhea. She admits to headache which feels like her typical headaches. Denies any chest pain or shortness of breath. No weakness or numbness in the arms or legs. ADDITIONAL HISTORY OBTAINED: Per HPI Chronic Medical/Social Conditions Affecting Care: Per HPI PAST MEDICAL HISTORY:See Below PAST SURGICAL HISTORY:See Below FAMILY HISTORY:See Below SOCIAL HISTORY:See Below HOME MEDICATIONS:See Below ALLERGIES:See Below VITALS:See Below PHYSICAL EXAMINATION: GENERAL: Sitting up in bed, alert, well appearing, well nourished, no distress, non-toxic EYE EXAM: normal conjunctiva. PERRL and EOM's grossly intact. OROPHARYNX: no exudate, no erythema, lips, buccal mucosa, and tongue normal and mucous membranes are moist NECK: supple, no nuchal rigidity, no adenopathy, non-tender LUNGS: Clear to auscultation. Normal chest wall mechanics HEART: no murmurs, S1 normal and S2 normal ABDOMEN: abdomen soft, non-tender, normo-active bowel sounds, no masses, no rebound or guarding. BACK: Back is symmetrical on inspection and there is no deformity, no midline tenderness, no CVA tenderness. SKIN: no rashes and no bruising UPPER EXTREMITIES: upper extremities are grossly normal. LOWER EXTREMITIES: No pitting edema. NEURO EXAM: Normal sensorium, cranial nerves II-XII grossly intact, normal speech, no gross weakness of arms, no gross weakness of legs. No drift. Finger to nose intact. Gross sensation intact. MEDICAL DECISION MAKING: Patient is a 68-year-old female who presents to the ER for the above-stated complaint. IV was established blood work is obtained. Labs show no significant leukocytosis or anemia. BMP along with LFTs bilirubin and lipase was remarkable for a lipase of 270. She is periumbilical abdominal pain associate with nausea and vomiting. UA was clean. Marijuana was positive. CT abdomen pelvis showed no signs of pancreatitis although with the elevated lipase and the symptoms this could likely be the cause versus drug-induced. She was given fluids Zofran and updated bedside and discussed with the hospitalist for further evaluation management treatment. Consults/Care Managements Discussions: Per MDM Triage Nursing notes reviewed. Limited review of prior medical records performed Vital Signs: reviewed and remarkable for HTN Differential diagnosis: Differential diagnoses includes but is not limited to gastritis, peptic ulcer disease, GERD, gallbladder disease, pancreatitis, small bowel obstruction, appendicitis, diverticulitis, hernia, urinary tract infection, torsion, /ectopic (if female), perforation, trauma, infectious. ER treatment provided: See below Diagnostics interpreted by me include EKG and cardiac monitoring as listed below: -Cardiac Monitoring: An order was placed for continuous cardiac monitoring. The monitor sho6ws a rate of 60 with sinus rhythm. -ECG: None -Laboratory studies:Interpreted by me as stated above in MDM and shown below. Imaging studies: Xrays: As interpreted by me: None CTs show: CT abdomen pelvis per my preliminary to rotation shows no obvious bowel obstruction CT of the pelvis per radiology shows no acute pathology Procedures: None Critical Care: None Past Med/Surg History Problem List Acute pancreatitis (Acute) Abdominal pain (Acute) Vomiting and diarrhea Vitamin B1 deficiency Vitamin D deficiency Anxiety Headache Constipation Anxiety and depression S/P cervical spinal fusion (Chronic) Medical History COVID-19 Clavicle fracture LEFT Arthritis Post traumatic stress disorder Surgical History Fusion of spine CERVICAL FUSION (GOOD ROM) History of hysterectomy History of bunionectomy RT/LEFT History of cholecystectomy History of colonoscopy History of tooth extraction Family History Father Family history of diabetes mellitus Hypertension Heart disease Mother Heart disease Other No family history of adverse response to anesthesia Social History Smoking Status: Never smoker Tobacco Type: Cigarettes Cigarettes Per Day: 20 CIG DAILY; Second Hand Exposure: No; Do You Dip or Chew Tobacco: No; Hx Alcohol Use: No Hx Substance Use: No Preferred Language: [place] Parking Enforcement Technician Required: No Beliefs That Will Affect Care: None marital status: Current Living Situation: Family Current Living Situation Comment: [facility] current occupational status: employed and retired 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 Feels Safe at Home: Yes Childhood Exposure to Second-Hand Smoke: Yes Diet: regular caffeine: Yes Dental Care, Regularly: No Seatbelt Use: always Sunscreen Use: Yes Assistive Devices: Denture - Upper, Denture - Lower and Glasses Allergies Allergies Allergy/AdvReac Type Severity Reaction Status Date / Time No Known Allergies Allergy Verified 03/26/24 20:15 Home Meds Home Medications Medication Instructions Recorded Confirmed acetaminophen 500 mg tablet 1,000 mg PO Q6H PRN PAIN/FEVER 09/02/23 03/26/24 (Tylenol Extra Strength) docusate sodium 100 mg capsule 100 mg PO BID PRN Constipation 09/02/23 03/26/24 (Stool Softener) thiamine HCl (vitamin B1) 100 mg 100 mg PO DAILY 12/29/23 03/26/24 tablet (Vitamin B-1) sennosides 8.6 mg tablet (Senokot) 8.6 mg PO DAILY PRN Constipation 01/28/24 03/26/24 Previous Rx's Medication Instructions Recorded cholecalciferol (vitamin D3) 25 1,000 unit PO DAILY #30 caps 10/15/23 mcg (1,000 unit) capsule (Vitamin D3) cyanocobalamin (vitamin B-12) 500 500 mcg PO DAILY #30 tabs 10/15/23 mcg tablet mirtazapine 30 mg tablet 30 mg PO HS #90 tabs 01/24/24 sertraline 50 mg tablet 50 mg PO DAILY 30 days #30 tabs 02/29/24 ondansetron HCl 4 mg tablet 4 mg PO Q8H PRN nausea and 03/08/24 vomiting #30 tabs lubiprostone 24 mcg capsule 24 mcg PO BID #60 caps 03/20/24 (Amitiza) Results & Data (ED) Vital Signs Vital Signs - 24 hr 03/26/24 18:51 03/26/24 19:09 03/26/24 19:20 Temperature 36.5 C Temperature Source Skin Pulse Rate 62 56 L Pulse Rate [Apical] 59 L Respiratory Rate 20 16 Respiratory Effort / Characteristics Non-Labored Spontaneous Respiratory Depth Normal Respiratory Pattern Regular Blood Pressure 160/85 H Blood Pressure [Left Arm] 153/77 H Blood Pressure Mean 110 Blood Pressure Mean [Left Arm] 102 Pulse Oximetry 96 97 Oxygen Delivery Method Room Air Room Air Sepsis Recent Fever Within 48 Hours No Sepsis New/Unexplained Change in Mental Status N/A Sepsis Action Taken by Nursing No Action Required 03/26/24 19:20 03/26/24 19:44 Temperature Temperature Source Pulse Rate Pulse Rate [Apical] 57 L Respiratory Rate 14 Respiratory Effort / Characteristics Non-Labored Spontaneous Respiratory Depth Normal Respiratory Pattern Regular Blood Pressure Blood Pressure [Left Arm] 172/96 H Blood Pressure Mean Blood Pressure Mean [Left Arm] 121 Pulse Oximetry 96 95 Oxygen Delivery Method Room Air Room Air Sepsis Recent Fever Within 48 Hours Sepsis New/Unexplained Change in Mental Status Sepsis Action Taken by Nursing Laboratory Data 03/26/24 19:10 03/26/24 19:10 Lab Results 03/26/24 03/26/24 Range/Units 19:10 19:15 WBC 7.38 (4.8-10.8) K/ul RBC 5.53 H (4.20-5.40) M/uL Hgb 13.8 (12.0-16.0) g/dl POC Hgb 15.3 (12.0-16.0) g/dl Hct 43.5 (37.0-47.0) % POC Hct 45 (37-47) % MCV 78.7 L (80.0-100.0) fL MCH 25.0 (25.0-34.0) pg MCHC 31.7 L (32.0-36.0) g/dL RDW Std Deviation 49.2 H (36.4-46.3) fL RDW Coeff of Jeana 17.9 H (11.5-14.5) % Plt Count 317 (130-400) K/uL MPV 11.5 (9.4-12.4) fL Immature Gran % (Auto) 0.3 % Neut % (Auto) 49.9 % Lymph % (Auto) 39.2 % Norman % (Auto) 8.8 % Eos % (Auto) 1.1 % Baso % (Auto) 0.7 % Neut # (Auto) 3.69 (1.40-6.50) K/uL Lymph # (Auto) 2.89 (1.20-3.40) K/uL Norman # (Auto) 0.65 H (0.11-0.59) K/uL Eos # (Auto) 0.08 (0.00-0.50) K/uL Baso # (Auto) 0.05 (0.00-0.20) K/uL Immature Gran # (Auto) 0.02 (0.01-0.20) K/uL POC Sodium 141 (135-144) mmol/L Sodium 140 (136-145) mmol/L POC Potassium 4.0 (3.3-5.0) mmol/L Potassium 3.9 (3.5-5.1) mmol/L POC Chloride 108 (101-112) mmol/L Chloride 106 (98-107) mmol/L Carbon Dioxide 24 (21-32) mmol/L POC Total CO2 22 L (24-31) mmol/L Anion Gap 10 (3-11) POC Anion Gap 16.0 (16-25) mmol/L POC BUN 11 (7-18) mg/dl BUN 11 (6-23) mg/dl Creatinine 1.00 (0.6-1.2) mg/dl POC Creatinine 1.1 (0.6-1.3) mg/dl Est Cr Clr Drug Dosing 47.1 ml/min Est GFR ( Amer) 67.5 ml/min Est GFR (Non-Af Amer) 58.3 ml/min BUN/Creatinine Ratio 11.0 (10-20) Glucose 95 (70-99(Fasting)) mg/dl POC Glucose (other) 93 (70-99) mg/dl Calcium 10.6 H (8.6-10.3) mg/dl POC Ioniz Calcium Yissel 1.24 (1.12-1.32) mmol/l Total Bilirubin 0.6 (0.2-1.0) mg/dl AST 18 (13-39) U/L ALT 11 (7-52) U/L Alkaline Phosphatase 61 (34-104) U/L Total Protein 8.0 (6.0-8.3) gm/dl Albumin 5.0 (3.4-5.0) gm/dl Globulin 3.0 (2.5-4.0) gm/dl Albumin/Globulin Ratio 1.7 (0.9-2) Lipase 269 H (11-82) U/L Urine Color Yellow Urine Appearance Clear (Clear) Urine pH 6.5 (4.5-7.5) Ur Specific Louise 1.018 (1.000-1.030) Urine Protein Negative (Negative) Urine Glucose (UA) Negative (Negative) Urine Ketones Trace H (Negative) Urine Blood Negative (Negative) Urine Nitrite Negative (Negative) Urine Bilirubin Negative (Negative) Urine Urobilinogen Negative (Negative) Ur Leukocyte Esterase Trace H (Negative) Urine WBC (Auto) 0-5 (0-5) /hpf Urine RBC (Auto) 0-2 (0-2) /hpf U Hyaline Cast (Auto) 0-2 (0-2) /lpf U Epithel Cells (Auto) 0-2 (0-2) /hpf Urine Bacteria (Auto) None Seen (None Seen) Urine Opiates Screen Neg (Neg) Ur Methadone, Qual Neg (Neg) Urine Fentanyl Screen Neg (Neg) Urine Barbiturates Neg (Neg) Ur Phencyclidine (PCP) Neg (Neg) U Amphetamin/Meth Scrn Neg (Neg) MDMA (Ecstasy) Screen Neg (Neg) U Benzodiazepines Scrn Neg (Neg) Ur Cocaine Metabolite Neg (Neg) U Marijuana (THC) Screen Pos H (Neg) Administered Medications Discontinued Medications Sodium Chloride (Nss) 1,000 mls @ 999 mls/hr IV .Q1H1M ONE Stop: 03/26/24 20:00 Last Infusion: 03/26/24 20:17 Dose: Infused Documented By: Admin: 03/26/24 19:18 Dose: 999 mls/hr Documented By: [email or web address] Promethazine HCl (Phenergan) 25 mg in 51 mls @ 204 mls/hr IV NOW STA Stop: 03/26/24 20:21 Last Admin: 03/26/24 20:16 Dose: Not Given Documented By: [email or web address] Lactated Ringer's (Lr) 1,000 mls @ 999 mls/hr IV .Q1H1M ONE Stop: 03/26/24 21:22 Last Infusion: 03/26/24 22:11 Dose: Infused Documented By: Admin: 03/26/24 20:27 Dose: 999 mls/hr Documented By: [email or web address] Ioversol (Optiray 320 100ml) 92 ml IV ONCE ONE Stop: 03/26/24 19:38 Last Admin: 03/26/24 19:37 Dose: 92 ml Documented By: MOLLY Metoclopramide HCl (Metoclopramide Hcl Inj 5 Mg/Ml 2 Ml Vial) 10 mg IV NOW STA Stop: 03/26/24 19:01 Last Admin: 03/26/24 19:17 Dose: 10 mg Documented By: [email or web address] Morphine Sulfate (Morphine Sulfate 4 Mg/Ml 1 Ml Carp\Vial) 4 mg IV NOW STA Stop: 03/26/24 20:08 Last Admin: 03/26/24 20:13 Dose: 4 mg Documented By: [email or web address] Ondansetron HCl (Ondansetron Inj 2 Mg/Ml 2 Ml Vial) 4 mg IV NOW STA Stop: 03/26/24 20:08 Last Admin: 03/26/24 20:13 Dose: 4 mg Documented By: [email or web address] Imaging Data Radiologist's Impression: Abdomen/Pelvis CT 03/26/24 19:00 CT OF THE ABDOMEN AND PELVIS WITH CONTRAST CLINICAL HISTORY: Abdominal pain. COMPARISON STUDY: CT of the abdomen and pelvis December 29, 2023. TECHNIQUE: Following IV administration of 92 mL of Optiray, axial images of the abdomen and pelvis were obtained from the lung bases to the proximal femurs. Images were reviewed in the axial, sagittal, and coronal planes. IV contrast was administered without complication. Automated exposure control was utilized for the study. A dose lowering technique was utilized adhering to the principles of ALARA. CT DOSE: 638.74 mGy.cm FINDINGS: No pneumatosis, free air or portal venous gas is present. Biliary ductal dilatation is unchanged and likely related to cholecystectomy. A water attenuation 2.1 cm caudate lobe lesion represents a cyst. There are no suspicious hepatic lesions. Spleen, adrenal glands, kidneys and pancreas are unremarkable. There is no hydronephrosis. There is no peripancreatic infiltration. The appendix is normal. The caliber and wall thickness of small and large bowel are normal. There is colonic diverticulosis without evidence for acute diverticulitis. There is mild plaque within the abdominal aorta. Major vessels within the abdomen are patent. There are no fluid collections. There is no lymphadenopathy. There are no acute fractures within the visualized skeletal structures. IMPRESSION: 1. No acute process within the abdomen or pelvis. 2. Normal appendix. No bowel obstruction. No bowel wall thickening. ACT 112: Negative or not required by law. Electronically signed by: Hola Leal M.D. 03/26/2024 7:46 PM Discharge Plan Visit Data Chief Complaint: Dehydration Stated Complaint: Diarrhea, DEHYDRATED ED Provider: Davian Brennan Discharge Problem: Abdominal pain, Acute pancreatitis Patient Disposition: Admitted As Inpatient Discharge Instructions Interventions: ED Discharge Assessment Last Done: 03/26/24 22:12 Discharge Problem: Abdominal pain Qualifiers: Abdominal location: unspecified location Qualified Code(s): R10.9 - Unspecified abdominal pain Acute pancreatitis Qualifiers: Pancreatitis type: unspecified pancreatitis type Acute pancreatitis complication: unspecified Qualified Code(s): K85.90 - Acute pancreatitis without necrosis or infection, unspecified
[2024-03-26] MEDS: METOCLOPRAMIDE HCL INJ 5 MG/ML 2 ML VIAL IV STA (19:17)
[2024-03-26] MEDS: SODIUM CHLORIDE 0.9% 1,000 ML IV ONE (19:18)
[2024-03-26 19:32] LABS: Basophils # (auto) 0.05 K/uL (0.00-0.20); Basophils % (auto) 0.7 %; Eosinophils # (auto) 0.08 K/uL (0.00-0.50); Eosinophils % (auto) 1.1 %; Hematocrit (blood only) 43.5 % (37.0-47.0); Hemoglobin 13.8 g/dl (12.0-16.0); Immature Granulocytes # (auto) 0.02 K/uL (0.01-0.20); Immature Granulocytes % (auto) 0.3 %; Lymphocytes # (auto) 2.89 K/uL (1.20-3.40); Lymphocytes % (auto) 39.2 %; Mean Corpuscular Hgb Conc 31.7 g/dL (32.0-36.0); Mean Corpuscular Volume 78.7 fL (80.0-100.0); Mean Platelet Volume 11.5 fL (9.4-12.4); Monocytes # (auto) 0.65 K/uL (0.11-0.59); Monocytes % (auto) 8.8 %; Neutrophils # (auto) 3.69 K/uL (1.40-6.50); Neutrophils % (auto) 49.9 %; Platelet Count 317 K/uL (130-400); RDW Coefficient of Variation 17.9 % (11.5-14.5); RDW Standard Deviation 49.2 fL (36.4-46.3); Red Blood Count 5.53 M/uL (4.20-5.40); White Blood Count 7.38 K/ul (4.8-10.8)
[2024-03-26 19:36] LABS: Appearance Urine Clear (Clear); Bacteria Urine Automated None Seen (None Seen); Bilirubin Urine Negative (Negative); Blood Urine Negative (Negative); Cast Urine Automated 0-2 /lpf (0-2); Color Urine Yellow; Epithelial Cell Urine Auto 0-2 /hpf (0-2); Glucose Urine UA Negative (Negative); Ketones Urine Trace (Negative); Leukocyte Esterase Urine Trace (Negative); Nitrite Urine Negative (Negative); Protein Urine Negative (Negative); RBC Urine Automated 0-2 /hpf (0-2); Specific Gravity Urine 1.018 (1.000-1.030); Urobilinogen Urine Negative (Negative); WBC Urine Automated 0-5 /hpf (0-5); pH Urine 6.5 (4.5-7.5)
[2024-03-26] MEDS: OPTIRAY 320 100ml IV ONE (19:37)
[2024-03-26 19:39] LABS: iSTAT Creatinine 1.1 mg/dl (0.6-1.3); iSTAT Hemoglobin 15.3 g/dl (12.0-16.0); iSTAT Ionized Calcium 1.24 mmol/l (1.12-1.32)
--- NOTE | 2024-03-26 19:48 | CT Scan Report ---
CT OF THE ABDOMEN AND PELVIS WITH CONTRAST CLINICAL HISTORY: Abdominal pain. COMPARISON STUDY: CT of the abdomen and pelvis December 29, 2023. TECHNIQUE: Following IV administration of 92 mL of Optiray, axial images of the abdomen and pelvis we re obtained from the lung bases to the proximal femurs. Images were reviewed in the axial, sagittal, and coronal planes. IV contrast was administered without complication. Automated exposure control wa s utilized for the study. A dose lowering technique was utilized adhering to the principles of ALARA . CT DOSE: 638.74 mGy.cm FINDINGS: No pneumatosis, free air or portal venous gas is present. Biliary ductal dilatation is unch anged and likely related to cholecystectomy. A water attenuation 2.1 cm caudate lobe lesion represent s a cyst. There are no suspicious hepatic lesions. Spleen, adrenal glands, kidneys and pancreas are u nremarkable. There is no hydronephrosis. There is no peripancreatic infiltration. The appendix is nor mal. The caliber and wall thickness of small and large bowel are normal. There is colonic diverticulo sis without evidence for acute diverticulitis. There is mild plaque within the abdominal aorta. Major vessels within the abdomen are patent. There are no fluid collections. There is no lymphadenopathy. There are no acute fractures within the visualized skeletal structures. IMPRESSION: 1. No acute process within the abdomen or pelvis. 2. Normal appendix. No bowel obstruction. No bowel wall thickening. ACT 112: Negative or not required by law. Electronically signed by: Hola Leal M.D. 03/26/2024 7:46 PM
[2024-03-26 19:49] LABS: Albumin Globulin Ratio 1.7 (0.9-2); Bilirubin,Total 0.6 mg/dl (0.2-1.0); Calcium 10.6 mg/dl (8.6-10.3); Creatinine Clr Calc Pharmacy 47.1 ml/min; Est GFR (African American) 67.5 ml/min; Est GFR (Non-African American) 58.3 ml/min; Potassium 3.9 mmol/L (3.5-5.1)
[2024-03-26] MEDS: MoRPHine SULFATE 4 MG/ML 1 ML CARP\\VIAL IV STA (20:13)
[2024-03-26] MEDS: ONDANSETRON INJ 2 MG/ML 2 ML VIAL IV STA (20:13)
[2024-03-26] MEDS: PROMETHAZINE 25 MG/51 ML BAG IV STA (20:16)
--- NOTE | 2024-03-26 20:19 | History & Physical Report ---
Date of Service March 26, 2024 Assessment & Plan (1) Vomiting and diarrhea: Plan: Admit to [facility] Currently stable but extremely anxious Presented to the ED today due to ongoing and progressive nausea, nonbloody emesis, and nonbloody diarrhea Workup thus far has been unremarkable besides a mildly elevated lipase at 269, however, patient is without abdominal pain or CT evidence of pancreatitis Suspect the vast majority of her symptoms at this time are due to confusion regarding use of stool softeners and Alem Has not had another episode of diarrhea since arrival but will add stool studies to rule out possible infectious otology As needed Zofran for nausea and as needed Tylenol for pain Status post 1 L NSS in the ED, will give an additional 1 L LR bolus on admission then continue light maintenance LR overnight Clear liquid diet for now Will consult gastroenterology as the patient needs clarification on her medication regimen moving forward Bilateral SCDs for DVT prophylaxis AM CBC, CMP, mag, PT/INR (2) Anxiety: Plan: Patient has been extremely anxious since arrival to the ED Was given 4 mg IV morphine just prior to my exam but was still incredibly anx ious Appears to have a long history of anxiety, is on sertraline outpatient Will add on urine drug screen to rule out possible substance use as an otology Continue sertraline Will order a small dose of as needed IV Ativan overnight but will hold home Remeron to avoid oversedation Plan The patient was discussed with Dr. Costa at the time of the admission History of Present Illness Chief Complaint: Nausea, vomiting, diarrhea Primary Care Provider: Bertha Caro MD Karie is a 68-year-old female with a past medical history significant for chronic constipation who presented to the [facility] ED on 03/26/2024 with complaints of nausea, vomiting, and diarrhea which began on 03/24/2024. She was noted to be hypertensive at 160/85 and bradycardic with heart rate in the 50s on arrival but otherwise stable. Labs were consistent with a lipase of 269 and UA with trace ketones and trace leukocyte Estrace. CT of the abdomen pelvis with contrast was read as negative for acute findings. Prior to admission the patient was given 1 L normal saline, 25 mg promethazine, 4 mg IV Zofran, 10 mg IV metoclopramide, and 4 mg IV morphine. Per chart review, the patient recently saw [facility] [place] [place] [facility] for follow-up on 03/20/2024 due to her chronic diarrhea. Per their note, patient has been unable to tolerate Linzess or Trulance due to causing diarrhea. She had been started on 8 mcg twice daily Amitiza previously without improvement in her constipation. The plan as of 03/20/2024 was to start taking 24 mcg Amitiza daily with the possibility of increasing to twice daily if needed. Patient was sitting on the edge of her bed and appeared very anxious at the time of the exam. History is obtained from the patient and her who was bedside. She confirms her long history of chronic constipation and inability to tolerate Linzess and Trulance in the past. States that she has been taking Colace twice daily over the past week. Started to develop nausea, nonbloody diarrhea, and multiple episodes of nonbloody emesis over the past 48 hours. When asked, she states that she took her first dose of 24 mcg Amitiza the evening of 03/25/2024 and took an additional dose this a.m. around 8:00. After clarification she confirmed that she took both of these doses after she was already experiencing diarrhea. When asked, she denies eating any restaurants or takeout food recently denies recent well water use or close contacts with similar symptoms. Denies recent fever, chills, chest pain, shortness of breath, abdominal pain, dysuria, hematuria, melena, lower extremity swelling, and recent trauma. She denies recent tobacco or alcohol use. I advised her to not take Amitiza If she is already experiencing diarrhea as this will significantly exacerbate diarrhea. Please refer to Dr. Costa's attestation for any changes to the treatment plan Allergies Allergy/AdvReac Type Severity Reaction Status Date / Time No Known Allergies Allergy Verified 03/26/24 20:15 Home Medications Medication Instructions Recorded Confirmed Type acetaminophen 500 mg tablet 1,000 mg PO Q6H PRN PAIN/FEVER 09/02/23 03/26/24 History (Tylenol Extra Strength) docusate sodium 100 mg capsule 100 mg PO BID PRN Constipation 09/02/23 03/26/24 History (Stool Softener) cholecalciferol (vitamin D3) 25 1,000 unit PO DAILY #30 caps 10/15/23 03/26/24 Rx mcg (1,000 unit) capsule (Vitamin D3) cyanocobalamin (vitamin B-12) 500 500 mcg PO DAILY #30 tabs 10/15/23 03/26/24 Rx mcg tablet thiamine HCl (vitamin B1) 100 mg 100 mg PO DAILY 12/29/23 03/26/24 History tablet (Vitamin B-1) mirtazapine 30 mg tablet 30 mg PO HS #90 tabs 01/24/24 03/26/24 Rx sennosides 8.6 mg tablet (Senokot) 8.6 mg PO DAILY PRN Constipation 01/28/24 03/26/24 History sertraline 50 mg tablet 50 mg PO DAILY 30 days #30 tabs 02/29/24 03/26/24 Rx ondansetron HCl 4 mg tablet 4 mg PO Q8H PRN nausea and 03/08/24 03/26/24 Rx vomiting #30 tabs lubiprostone 24 mcg capsule 24 mcg PO BID #60 caps 03/20/24 03/26/24 Rx (Amitiza) Past Med/Surg History Problem List Acute pancreatitis (Acute) Abdominal pain (Acute) Vomiting and diarrhea Vitamin B1 deficiency Vitamin D deficiency Anxiety Headache Constipation Anxiety and depression S/P cervical spinal fusion (Chronic) Medical History COVID-19 Clavicle fracture LEFT Arthritis Post traumatic stress disorder Surgical History Fusion of spine CERVICAL FUSION (GOOD ROM) History of hysterectomy History of bunionectomy RT/LEFT History of cholecystectomy History of colonoscopy History of tooth extraction Family History Father Family history of diabetes mellitus Hypertension Heart disease Mother Heart disease Other No family history of adverse response to anesthesia Social History Smoking Status: Never smoker Tobacco Type: Cigarettes Cigarettes Per Day: 20 CIG DAILY; Second Hand Exposure: No; Do You Dip or Chew Tobacco: No; Tobacco Cessation Education Requested by Patient: No Hx Alcohol Use: No Hx Substance Use: No Preferred Language: Sami Communication Ability: Effective Manager Operating Required: No Beliefs That Will Affect Care: None marital status: Current Living Situation: Spouse and Family Current Living Situation Comment: [facility] current occupational status: employed and retired 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 Feels Safe at Home: Yes Safety Concerns: Feels Safe At This Time Childhood Exposure to Second-Hand Smoke: Yes Diet: regular caffeine: Yes Dental Care, Regularly: No Seatbelt Use: always Sunscreen Use: Yes Assistive Devices: Denture - Upper, Denture - Lower and Glasses Assistive Devices Comment: n/a Physical Exam Physical Exam: Physical Exam: General: Significantly anxious, stated age, Nontoxic-appearing HEENT: Normocephalic, atraumatic, no scleral icterus, pupils around round, symmetrical, and reactive to light, Dry mucus membranes, trachea midline, no thyromegaly Chest/Pulm: No respiratory distress, symmetrical chest expansion, clear breath sounds throughout Cardiac: RRR, no murmurs noted Abdomen: Negative for ascites and bruising, Hyperactive bowel sounds, soft, non-tender to palpation throughout Musculoskeletal: Symmetrical and without signs of acute trauma, upper and lower extremities with full ROM, no atrophy, spasticity, or flaccidity Extremities: Radial, dorsalis pedis, and posterior tibial pulses are intact and symmetrical, no edema noted in the BL LE's Skin: Warm, dry, no rashes , lesions, or scars noted Neuro: Alert and oriented to person, place, month, year, and president, no focal defects, no tremors noted Psych: Anxious but polite and cooperative during the exam Results & Data Results & Data Vital Signs (Past 12 Hours) Vital Signs Temp Pulse Pulse Resp BP BP Pulse Ox 03/26/24 19:44 57 L 14 172/96 H 95 03/26/24 19:20 96 03/26/24 19:20 59 L 16 153/77 H 97 03/26/24 19:09 56 L 03/26/24 18:51 36.5 C 62 20 160/85 H 96 O2 Del Method 03/26/24 19:44 Room Air 03/26/24 19:20 Room Air 03/26/24 19:20 Room Air 03/26/24 19:09 03/26/24 18:51 Room Air Laboratory Results Abnormal lab results 03/26/24 03/26/24 Range/Units 19:10 19:15 RBC 5.53 H (4.20-5.40) M/uL MCV 78.7 L (80.0-100.0) fL MCHC 31.7 L (32.0-36.0) g/dL RDW Std Deviation 49.2 H (36.4-46.3) fL RDW Coeff of Jeana 17.9 H (11.5-14.5) % [place] # (Auto) 0.65 H (0.11-0.59) K/uL POC Total CO2 22 L (24-31) mmol/L Calcium 10.6 H (8.6-10.3) mg/dl Lipase 269 H (11-82) U/L Urine Ketones Trace H (Negative) Ur Leukocyte Esterase Trace H (Negative) Diagnostic Findings Abdomen/Pelvis CT 03/26/24 19:00 CT OF THE ABDOMEN AND PELVIS WITH CONTRAST CLINICAL HISTORY: Abdominal pain. COMPARISON STUDY: CT of the abdomen and pelvis December 29, 2023. TECHNIQUE: Following IV administration of 92 mL of Optiray, axial images of the abdomen and pelvis were obtained from the lung bases to the proximal femurs. Images were reviewed in the axial, sagittal, and coronal planes. IV contrast was administered without complication. Automated exposure control was utilized for the study. A dose lowering technique was utilized adhering to the principles of ALARA. CT DOSE: 638.74 mGy.cm FINDINGS: No pneumatosis, free air or portal venous gas is present. Biliary ductal dilatation is unchanged and likely related to cholecystectomy. A water attenuation 2.1 cm caudate lobe lesion represents a cyst. There are no suspicious hepatic lesions. Spleen, adrenal glands, kidneys and pancreas are unremarkable. There is no hydronephrosis. There is no peripancreatic infiltration. The appendix is normal. The caliber and wall thickness of small and large bowel are normal. There is colonic diverticulosis without evidence for acute diverticulitis. There is mild plaque within the abdominal aorta. Major vessels within the abdomen are patent. There are no fluid collections. There is no lymphadenopathy. There are no acute fractures within the visualized skeletal structures. IMPRESSION: 1. No acute process within the abdomen or pelvis. 2. Normal appendix. No bowel obstruction. No bowel wall thickening. ACT 112: Negative or not required by law. Electronically signed by: Hola Leal M.D. 03/26/2024 7:46 PM Code Status & VTE Plan VTE Prophylaxis Plan VTE Prophylaxis will be ordered: Yes Supervising Physician Co-Signing Physician Notes Attending addendum: I have physically seen this patient, have supervised the HAO's activities, and agree with the H&P unless as otherwise noted. Assessment and Plan: Intractable nausea, vomiting and diarrhea- Admit to medical surgical CT scan abdomen pelvis negative for acute findings Lipase is mildly elevated at 269, with no CT evidence of pancreatitis From the ED the patient received the following with minimal improvement in symptoms: NSS 1 L bolus, metoclopramide 10 mg IV, Phenergan 25 mg IV, morphine sulfate 4 mg IV, and Zofran 4 mg IV Fluid liquid diet, advance as tolerated Temporarily hold lubiprostone, and consult gastroenterology, as patient is unsure of proper usage Urine drug screen is positive for marijuana, with confirmation pending. Likely an element of cannabinoid hyperemesis syndrome Anxiety- Continue sertraline and Remeron As needed Ativan IV Vitamin deficiencies- Continue B12, thiamine and cholecalciferol supplements PG Care Time/CCT Total # of Minutes Spent Total Time Spent with Patient: Total time spent is greater than 50% in coordination of care (as documented) at patient's floor/unit and/or counseling patient: C[place] [address] INT INP/OBS CARE 2/55MIN Patient Type Established Medical Decision Making Moderate Complexity Diagnoses Vomiting and diarrhea R11.10; R19.7 Anxiety F41.9
[2024-03-26] MEDS: LACTATED RINGER'S 1,000 ML IV ONE (20:27)
[2024-03-26 21:04] LABS: Amphetamines+Metham, Urine Neg (Neg); Barbiturates, Urine Neg (Neg); Benzodiazepine, Urine Neg (Neg); Cocaine, Urine Neg (Neg); Fentanyl, Urine Neg (Neg); MDMA (Ecstacy), Urine Neg (Neg); Marijuana, Urine Pos (Neg); Methadone, Urine Neg (Neg); Opiate, Urine Neg (Neg); Phencyclidine, Urine Neg (Neg)
[2024-03-27] MEDS: LACTATED RINGER'S 1,000 ML IV SCH (00:10)
[2024-03-27] MEDS: LORazepam 0.5 MG in SYRINGE 0.25 ML IV PRN (00:11)
[2024-03-27 07:43] LABS: Basophils # (auto) 0.05 K/uL (0.00-0.20); Eosinophils # (auto) 0.06 K/uL (0.00-0.50); Eosinophils % (auto) 1.3 %; Hematocrit (blood only) 35.7 % (37.0-47.0); Hemoglobin 11.3 g/dl (12.0-16.0); Immature Granulocytes # (auto) 0.02 K/uL (0.01-0.20); Immature Granulocytes % (auto) 0.4 %; Lymphocytes # (auto) 1.49 K/uL (1.20-3.40); Lymphocytes % (auto) 31.2 %; Mean Corpuscular Hemoglobin 24.5 pg (25.0-34.0); Mean Corpuscular Hgb Conc 31.7 g/dL (32.0-36.0); Mean Corpuscular Volume 77.3 fL (80.0-100.0); Mean Platelet Volume 11.3 fL (9.4-12.4); Monocytes # (auto) 0.43 K/uL (0.11-0.59); Neutrophils # (auto) 2.72 K/uL (1.40-6.50); Neutrophils % (auto) 57.1 %; Platelet Count 233 K/uL (130-400); RDW Coefficient of Variation 17.2 % (11.5-14.5); RDW Standard Deviation 48.4 fL (36.4-46.3); Red Blood Count 4.62 M/uL (4.20-5.40); White Blood Count 4.77 K/ul (4.8-10.8)
[2024-03-27 07:59] LABS: Albumin Globulin Ratio 1.7 (0.9-2); Albumin Level 3.8 gm/dl (3.4-5.0); BUN Creatinine Ratio 8.2 (10-20); Bilirubin,Total 0.6 mg/dl (0.2-1.0); Calcium 8.8 mg/dl (8.6-10.3); Creatinine Clr Calc Pharmacy 55.5 ml/min; Est GFR (African American) 82.2 ml/min; Est GFR (Non-African American) 70.9 ml/min; Globulin 2.2 gm/dl (2.5-4.0); Magnesium 1.7 mg/dl (1.7-2.4)
[2024-03-27 08:07] LABS: Prothrombin Time 10.9 Seconds (9.0-12.0)
[2024-03-27] MEDS: ACETAMINOPHEN 325 MG TAB PO PRN (08:29)
[2024-03-27] MEDS: THIAMINE HCL 100 MG TAB PO SCH (08:29)
[2024-03-27] MEDS: CYANOCOBALAMIN (B-12) 500 MCG TABLET PO SCH (08:29)
[2024-03-27] MEDS: SERTRALINE HCL 50 MG TABLET PO SCH (08:29)
[2024-03-27] MEDS: CHOLECALCIFEROL 25 MCG (1000 UNITS) TAB PO SCH (08:29)
[2024-03-27] MEDS: ONDANSETRON INJ 2 MG/ML 2 ML VIAL IV PRN (08:30)
--- NOTE | 2024-03-27 11:14 | Gastrointestinal Consultation ---
Date of Consultation March 27, 2024 Assessment & Plan (1) Constipation: 68 year old female with chronic constipation tried and failed Miralax, trulance, Linzess and low dose amitizia admitted with abd pain, diarrhea, nausea/vomiting after two doses of Amitiza [address] imaging without any acute pathology, she had mild lipase elevation with normal transaminases. Her symptoms have resolved with bowel rest and holding the Amitiza. Restart Amitiza 8 mcg twice daily Augment with Miralax - May titrate the Miralax based on the response Keep outpatient colonoscopy as planned Diet as tolerated Recall GI as needed. I spent a total of 60 minutes on the date of service in review of patient's record, and previously obtained information in person and appropriate medical visit, discussion and education of plan, with patient and/or caregiver, placing orders for tests/referral/procedures as medically necessary and documentation of pertinent clinical information in patient's medical records for their visit today. Supervising Physician Co-Signing Physician Notes I saw and examined this patient with our nurse practitioner and agree with her assessment and plan. Suspect symptoms are related to recent trial of Amitiza versus self-limiting gastroenteritis. Longstanding chronic constipation workup in progress as an outpatient. Recommend treating patient symptomatically with IV fluids antiemetics ultimate discharge when better on lower dose Amitiza. Clinical exam unremarkable abdomen soft nontender in no acute distress. History of Present Illness Reason for Consultation: nausea, vomiting, diarrhea Requesting Physician: Yari Peacock MD Attending Physician: Yari Peacock MD History of Present Illness 68 year old female wit history of anxiety/depression, GRANADOS, chronic constipation admitted through the ED w/ abd pain, nausea/vomiting - GI was asked to evaluate. Pt was seen and evaluated, chart reviewed. She endorses a history of chronic constipation. Has tried on failed Miralax, numerous OTC, Trulance, Linzess and Amtizia 8mcg twice daily. She was evaluated by GI, increased her Amitizia to 24 mcg twice daily. She notes she took two doses of this and had severe diarrhea, abd cramping and nausea/vomiting. Sought ED care. CTAP 2023: 1. No acute process within the abdomen or pelvis. 2. Normal appendix. No bowel obstruction. No bowel wall thickening. Colonoscopy 2017 w/ Dr. Rivero: two sigmoid colon polyps, diverticulosis and internal hemorrhoids, recall was set for 5 years Allergies Allergy/AdvReac Type Severity Reaction Status Date / Time No Known Allergies Allergy Verified 03/26/24 20:15 Home Medications Medication Instructions Recorded Confirmed Type acetaminophen 500 mg tablet 1,000 mg PO Q6H PRN PAIN/FEVER 09/02/23 03/26/24 History (Tylenol Extra Strength) docusate sodium 100 mg capsule 100 mg PO BID PRN Constipation 09/02/23 03/26/24 History (Stool Softener) cholecalciferol (vitamin D3) 25 1,000 unit PO DAILY #30 caps 10/15/23 03/26/24 Rx mcg (1,000 unit) capsule (Vitamin D3) cyanocobalamin (vitamin B-12) 500 500 mcg PO DAILY #30 tabs 10/15/23 03/26/24 Rx mcg tablet thiamine HCl (vitamin B1) 100 mg 100 mg PO DAILY 12/29/23 03/26/24 History tablet (Vitamin B-1) mirtazapine 30 mg tablet 30 mg PO HS #90 tabs 01/24/24 03/26/24 Rx sennosides 8.6 mg tablet (Senokot) 8.6 mg PO DAILY PRN Constipation 01/28/24 03/26/24 History sertraline 50 mg tablet 50 mg PO DAILY 30 days #30 tabs 02/29/24 03/26/24 Rx ondansetron HCl 4 mg tablet 4 mg PO Q8H PRN nausea and 03/08/24 03/26/24 Rx vomiting #30 tabs lubiprostone 24 mcg capsule 24 mcg PO BID #60 caps 03/20/24 03/26/24 Rx (Amitiza) Patient History Medical History COVID-19 Clavicle fracture LEFT Arthritis Post traumatic stress disorder Surgical History Fusion of spine CERVICAL FUSION (GOOD ROM) History of hysterectomy History of bunionectomy RT/LEFT History of cholecystectomy History of colonoscopy History of tooth extraction Family History Father Family history of diabetes mellitus Hypertension Heart disease Mother Heart disease Other No family history of adverse response to anesthesia Social History Smoking Status: Never smoker Tobacco Type: Cigarettes Cigarettes Per Day: 20 CIG DAILY; Second Hand Exposure: No; Do You Dip or Chew Tobacco: No; Tobacco Cessation Education Requested by Patient: No Hx Alcohol Use: No Hx Substance Use: No Preferred Language: Vietnamese Communication Ability: Effective Belly Roller Required: No Beliefs That Will Affect Care: None marital status: Current Living Situation: Spouse and Family Current Living Situation Comment: [facility] current occupational status: employed and retired 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 Physical Exam Constitutional: WD/WN, vitals as above Respiratory: normal respiratory effort, lungs clear to auscultation Cardiovascular: RRR, no murmur, no edema Gastrointestinal (Abdomen): normal bowel sounds, soft, nontender, no hepatosplenomegaly Skin: no rashes, warm and dry Results & Data Vital Signs (Past 12 Hours) Vital Signs Temp Pulse Resp BP Pulse Ox O2 Del Method 03/27/24 08:33 36.8 C 60 16 158/90 H 93 Room Air PG Care Time/CCT Total # of Minutes Spent Total Time Spent with Patient: Total time spent is greater than 50% in coordination of care (as documented) at patient's floor/unit and/or counseling patient: Coding Level of Care Code 91048 INT INP/OBS CARE 2/55MIN Diagnoses Constipation, unspecified constipation type K59.00 Constipation type: unspecified constipation type (1) Constipation Constipation type: unspecified constipation type Qualified Code(s): K59.00 - Constipation, unspecified
[2024-03-27] MEDS ORDERED: POLYETHYLENE (MIRALAX) 17 GM PACK PO PRN (14:45)
--- NOTE | 2024-03-27 14:48 | Hospitalist Progress Note ---
Date of Service March 27, 2024 Assessment & Plan (1) Vomiting and diarrhea: Plan: Presented to the ED due to ongoing and progressive nausea, nonbloody emesis, and nonbloody diarrhea Workup thus far has been unremarkable besides a mildly elevated lipase at 269, however, patient is without abdominal pain or CT evidence of pancreatitis Suspect the vast majority of her symptoms at this time are due to confusion regarding use of stool softeners and lAem Has not had another episode of diarrhea since arrival As needed Zofran for nausea and as needed Tylenol for pain Advance to a full liquid diet GI recommendations appreciated. Starting Amitiza 8 mcg p.o. twice daily. Starting MiraLAX (2) Anxiety: Plan: Seems to be better controlled now. Admission and Anticipated Discharge Date Admission Date: March 26, 2024 Subjective Patient says that she has not had any more episodes of vomiting. She had some nausea this morning for which she took Zofran. No diarrhea. Review of Systems Review of Systems: All systems reviewed & are unremarkable except as noted in Subjective Physical Exam Physical Exam: General: Awake, conversant Heart: S1, S2/regular rate and rhythm, no murmur rubs or gallops Lungs: Clear to auscultation bilaterally. Normal effort Abdomen: Soft/nontender/nondistended. No hepatosplenomegaly Extremities: No clubbing/cyanosis. No edema Behavior: Appropriate, cooperative Results & Data Results & Data Vital Signs (Past 12 Hours) Vital Signs Temp Pulse Resp BP BP Pulse Ox O2 Del Method 03/27/24 12:06 36.8 C 52 L 16 145/77 H 94 Room Air 03/27/24 08:33 36.8 C 60 16 158/90 H 93 Room Air Laboratory Results Abnormal lab results 03/26/24 03/26/24 03/27/24 Range/Units 19:10 19:15 07:25 WBC 4.77 L (4.8-10.8) K/ul RBC 5.53 H (4.20-5.40) M/uL Hgb 11.3 L (12.0-16.0) g/dl Hct 35.7 L (37.0-47.0) % MCV 78.7 L 77.3 L (80.0-100.0) fL MCH 24.5 L (25.0-34.0) pg MCHC 31.7 L 31.7 L (32.0-36.0) g/dL RDW Std Deviation 49.2 H 48.4 H (36.4-46.3) fL RDW Coeff of Jeana 17.9 H 17.2 H (11.5-14.5) % [place] # (Auto) 0.65 H (0.11-0.59) K/uL Chloride 110 H (98-107) mmol/L POC Total CO2 22 L (24-31) mmol/L BUN/Creatinine Ratio 8.2 L (10-20) Calcium 10.6 H (8.6-10.3) mg/dl Globulin 2.2 L (2.5-4.0) gm/dl Lipase 269 H (11-82) U/L Urine Ketones Trace H (Negative) Ur Leukocyte Esterase Trace H (Negative) U Marijuana (THC) Screen Pos H (Neg) PG Care Time/CCT Total # of Minutes Spent Total Time Spent with Patient: Total time spent is greater than 50% in coordination of care (as documented) at patient's floor/unit and/or counseling patient: Coding Level of Care Code 19456 SUB INP/OBS CARE 2/35MIN Diagnoses Vomiting and diarrhea R11.10; R19.7 Anxiety F41.9
[2024-03-27] MEDS: LUBIPROSTONE 8 MCG CAP PO SCH (21:38)
[2024-03-27] MEDS: MIRTAZAPINE TAB 15 MG TAB PO SCH (21:38)
[2024-03-28] MEDS: POLYETHYLENE (MIRALAX) 17 GM PACK PO SCH (07:45)
[2024-03-28 07:49] LABS: Basophils # (auto) 0.05 K/uL (0.00-0.20); Basophils % (auto) 0.9 %; Eosinophils # (auto) 0.09 K/uL (0.00-0.50); Eosinophils % (auto) 1.6 %; Hematocrit (blood only) 40.6 % (37.0-47.0); Hemoglobin 12.9 g/dl (12.0-16.0); Immature Granulocytes # (auto) 0.03 K/uL (0.01-0.20); Immature Granulocytes % (auto) 0.5 %; Lymphocytes # (auto) 1.87 K/uL (1.20-3.40); Lymphocytes % (auto) 32.4 %; Mean Corpuscular Hemoglobin 24.6 pg (25.0-34.0); Mean Corpuscular Hgb Conc 31.8 g/dL (32.0-36.0); Mean Corpuscular Volume 77.5 fL (80.0-100.0); Mean Platelet Volume 11.4 fL (9.4-12.4); Monocytes # (auto) 0.51 K/uL (0.11-0.59); Monocytes % (auto) 8.8 %; Neutrophils # (auto) 3.23 K/uL (1.40-6.50); Neutrophils % (auto) 55.8 %; Platelet Count 266 K/uL (130-400); RDW Coefficient of Variation 17.1 % (11.5-14.5); RDW Standard Deviation 47.8 fL (36.4-46.3); Red Blood Count 5.24 M/uL (4.20-5.40); White Blood Count 5.78 K/ul (4.8-10.8)
[2024-03-28 08:17] LABS: Prothrombin Time 10.9 Seconds (9.0-12.0)
[2024-03-28 08:18] LABS: Albumin Globulin Ratio 1.7 (0.9-2); Albumin Level 4.6 gm/dl (3.4-5.0); BUN Creatinine Ratio 9.6 (10-20); Bilirubin,Total 0.8 mg/dl (0.2-1.0); Calcium 9.7 mg/dl (8.6-10.3); Creatinine Clr Calc Pharmacy 50.1 ml/min; Est GFR (African American) 72.8 ml/min; Est GFR (Non-African American) 62.8 ml/min; Globulin 2.7 gm/dl (2.5-4.0); Magnesium 1.8 mg/dl (1.7-2.4); Potassium 3.8 mmol/L (3.5-5.1); Total Protein 7.3 gm/dl (6.0-8.3)
--- NOTE | 2024-03-28 09:04 | Gastroenterology Progress Note ---
Date of Service March 28, 2024 Assessment & Plan (1) Constipation: Plan: 68 year old female with chronic constipation tried and failed Miralax, trulance, Linzess and low dose amitizia admitted with abd pain, diarrhea, nausea/vomiting after two doses of Amitiza [address] imaging without any acute pathology, she had mild lipase elevation with normal transaminases. Her symptoms have resolved with bowel rest and holding the Amitiza. Restart Amitiza 8 mcg twice daily Augment with Miralax - May titrate the Miralax based on the response Keep outpatient colonoscopy as planned Advance diet as tolerated Recall GI as needed. I spent a total of 50 minutes on the date of service in review of patient's record, and previously obtained information in person and appropriate medical visit, discussion and education of plan, with patient and/or caregiver, placing orders for tests/referral/procedures as medically necessary and documentation of pertinent clinical information in patient's medical records for their visit today. Admission and Anticipated Discharge Date Admission Date: March 26, 2024 Supervising Physician Co-Signing Physician Notes I saw and examined this patient with our nurse practitioner and agree with her assessment and plan. Clinically improving tolerating Amitiza 8 mcg twice daily. I advance to solid food. Suspect majority of her symptoms acutely were related to the high dose of Amitiza. Ultimate discharge within 24 hours if she continues to improve and tolerate her diet. Subjective Pt was seen and evaluated, chart reviewed. No acute events noted overnight. She suggests her symptoms are near her baseline. Chronic abd pain, GI upset. No further nausea/vomiting. Is upset that she was only provided clear liquids this AM. Is requesting regular diet. No further BMs since admission. She notes she was restarted on Amitiza and Miralax yesterday. Review of Systems Review of Systems: All other findings negative except as noted in HPI. Physical Exam Constitutional: WD/WN, vitals as above Respiratory: normal respiratory effort, lungs clear to auscultation Cardiovascular: Rate/Rhythm: regular rate Gastrointestinal (Abdomen): normal bowel sounds, soft, nontender, no hepatosplenomegaly Skin: no rashes, warm and dry Results & Data Results & Data Vital Signs (Past 12 Hours) Vital Signs Temp Pulse Resp BP Pulse Ox O2 Del Method 03/28/24 07:51 36.6 C 64 16 133/73 95 Room Air Laboratory Results 03/28/24 Range/Units 07:30 WBC 5.78 (4.8-10.8) K/ul RBC 5.24 (4.20-5.40) M/uL Hgb 12.9 (12.0-16.0) g/dl Hct 40.6 (37.0-47.0) % MCV 77.5 L (80.0-100.0) fL MCH 24.6 L (25.0-34.0) pg MCHC 31.8 L (32.0-36.0) g/dL RDW Std Deviation 47.8 H (36.4-46.3) fL RDW Coeff of Jeana 17.1 H (11.5-14.5) % Plt Count 266 (130-400) K/uL MPV 11.4 (9.4-12.4) fL Immature Gran % (Auto) 0.5 % Neut % (Auto) 55.8 % Lymph % (Auto) 32.4 % [place] % (Auto) 8.8 % Eos % (Auto) 1.6 % Baso % (Auto) 0.9 % Neut # (Auto) 3.23 (1.40-6.50) K/uL Lymph # (Auto) 1.87 (1.20-3.40) K/uL [place] # (Auto) 0.51 (0.11-0.59) K/uL Eos # (Auto) 0.09 (0.00-0.50) K/uL Baso # (Auto) 0.05 (0.00-0.20) K/uL Immature Gran # (Auto) 0.03 (0.01-0.20) K/uL PT 10.9 (9.0-12.0) Seconds INR 1.0 (0.9-1.1) Sodium 141 (136-145) mmol/L Potassium 3.8 (3.5-5.1) mmol/L Chloride 107 (98-107) mmol/L Carbon Dioxide 25 (21-32) mmol/L Anion Gap 9 (3-11) BUN 9 (6-23) mg/dl Creatinine 0.94 (0.6-1.2) mg/dl Est Cr Clr Drug Dosing 50.1 ml/min Est GFR ( Amer) 72.8 ml/min Est GFR (Non-Af Amer) 62.8 ml/min BUN/Creatinine Ratio 9.6 L (10-20) Glucose 91 (70-99(Fasting)) mg/dl Calcium 9.7 (8.6-10.3) mg/dl Magnesium 1.8 (1.7-2.4) mg/dl Total Bilirubin 0.8 (0.2-1.0) mg/dl AST 18 (13-39) U/L ALT 10 (7-52) U/L Alkaline Phosphatase 53 (34-104) U/L Total Protein 7.3 D (6.0-8.3) gm/dl Albumin 4.6 (3.4-5.0) gm/dl Globulin 2.7 (2.5-4.0) gm/dl Albumin/Globulin Ratio 1.7 (0.9-2) PG Care Time/CCT Total # of Minutes Spent Total Time Spent with Patient: Total time spent is greater than 50% in coordination of care (as documented) at patient's floor/unit and/or counseling patient: Coding Level of Care Code 92109 SUB INP/OBS CARE 3/50MIN Diagnoses Constipation, unspecified constipation type K59.00 Constipation type: unspecified constipation type (1) Constipation Constipation type: unspecified constipation type Qualified Code(s): K59.00 - Constipation, unspecified
[2024-03-28 10:46] LABS: Adenovirus F 40/41 PCR Not Detected (NotDetected); Astrovirus PCR Not Detected (NotDetected); Campylobacter PCR Not Detected (NotDetected); Cryptosporidium PCR Not Detected (NotDetected); Cyclospora cayetanensis PCR Not Detected (NotDetected); Entamoeba histolytica PCR Not Detected (NotDetected); Enteroaggregative E.coli(EAEC) Not Detected (NotDetected); Enteropathogenic E.coli (EPEC) Not Detected (NotDetected); Enterotoxigenic E.coli (ETEC) Not Detected (NotDetected); Giardia lamblia PCR Not Detected (NotDetected); Norovirus GI/GII PCR Not Detected (NotDetected); Plesiomonas shigelloides PCR Not Detected (NotDetected); Rotavirus A PCR Not Detected (NotDetected); Salmonella PCR Not Detected (NotDetected); Sapovirus PCR Not Detected (NotDetected); Shiga-like Toxin E.coli (STEC) Not Detected (NotDetected); Shigella/Enteroinvasive E.coli Not Detected (NotDetected); Vibrio cholerae PCR Not Detected (NotDetected); Vibrio species PCR Not Detected (NotDetected); Yersinia enterocolitica PCR Not Detected (NotDetected)
--- NOTE | 2024-03-28 15:16 | Hospitalist Progress Note ---
Date of Service March 28, 2024 Assessment & Plan (1) Vomiting and diarrhea: Plan: Presented to the ED due to ongoing and progressive nausea, nonbloody emesis, and nonbloody diarrhea Workup thus far has been unremarkable besides a mildly elevated lipase at 269, however, patient is without abdominal pain or CT evidence of pancreatitis Suspect the vast majority of her symptoms at this time are due to confusion regarding use of stool softeners and Alem Has not had another episode of diarrhea since arrival As needed Zofran for nausea and as needed Tylenol for pain Advance to solid diet GI recommendations appreciated. Continue Amitiza 8 mcg p.o. twice daily. MiraLAX (2) Anxiety: Plan: Seems to be better controlled now. Plan Likely discharge tomorrow Admission and Anticipated Discharge Date Admission Date: March 26, 2024 Subjective Patient states that she has not been vomiting. But has been nauseous. She has been tolerating a full liquid diet. She would like to try solid diet for a day prior to discharge. Review of Systems Review of Systems: All systems reviewed & are unremarkable except as noted in Subjective Physical Exam Physical Exam: General: Awake, conversant Heart: S1, S2/regular rate and rhythm, no murmur rubs or gallops Lungs: Clear to auscultation bilaterally. Normal effort Abdomen: Soft/nontender/nondistended. No hepatosplenomegaly Extremities: No clubbing/cyanosis. No edema Behavior: Appropriate, cooperative Results & Data Results & Data Vital Signs (Past 12 Hours) Vital Signs Temp Pulse Resp BP BP Pulse Ox O2 Del Method 03/28/24 14:55 36.8 C 71 16 154/78 H 95 Room Air 03/28/24 07:51 36.6 C 64 16 133/73 95 Room Air Laboratory Results Abnormal lab results 03/28/24 Range/Units 07:30 MCV 77.5 L (80.0-100.0) fL MCH 24.6 L (25.0-34.0) pg MCHC 31.8 L (32.0-36.0) g/dL RDW Std Deviation 47.8 H (36.4-46.3) fL RDW Coeff of Jeana 17.1 H (11.5-14.5) % BUN/Creatinine Ratio 9.6 L (10-20) PG Care Time/CCT Total # of Minutes Spent Total Time Spent with Patient: Total time spent is greater than 50% in coordination of care (as documented) at patient's floor/unit and/or counseling patient: Coding Level of Care Code 35181 SUB INP/OBS CARE 2/35MIN Diagnoses Vomiting and diarrhea R11.10; R19.7 Anxiety F41.9
[2024-03-28 19:27] VITALS: TEMP 97.7
[2024-03-28] MEDS ORDERED: ONDANSETRON 4 MG OD TAB PO PRN (23:25)
[2024-03-28] MEDS ORDERED: LORazepam 0.5 MG TAB PO PRN (23:25)
[2024-03-29 08:08] LABS: Basophils # (auto) 0.05 K/uL (0.00-0.20); Eosinophils # (auto) 0.08 K/uL (0.00-0.50); Eosinophils % (auto) 1.6 %; Hematocrit (blood only) 40.2 % (37.0-47.0); Hemoglobin 12.6 g/dl (12.0-16.0); Immature Granulocytes # (auto) 0.02 K/uL (0.01-0.20); Immature Granulocytes % (auto) 0.4 %; Lymphocytes # (auto) 1.59 K/uL (1.20-3.40); Lymphocytes % (auto) 30.9 %; Mean Corpuscular Hemoglobin 24.8 pg (25.0-34.0); Mean Corpuscular Hgb Conc 31.3 g/dL (32.0-36.0); Mean Corpuscular Volume 79.1 fL (80.0-100.0); Mean Platelet Volume 11.7 fL (9.4-12.4); Monocytes # (auto) 0.45 K/uL (0.11-0.59); Monocytes % (auto) 8.7 %; Neutrophils # (auto) 2.96 K/uL (1.40-6.50); Neutrophils % (auto) 57.4 %; Platelet Count 260 K/uL (130-400); RDW Standard Deviation 47.9 fL (36.4-46.3); Red Blood Count 5.08 M/uL (4.20-5.40); White Blood Count 5.15 K/ul (4.8-10.8)
[2024-03-29 08:20] LABS: Albumin Globulin Ratio 1.9 (0.9-2); Albumin Level 4.5 gm/dl (3.4-5.0); BUN Creatinine Ratio 16.5 (10-20); Bilirubin,Total 0.8 mg/dl (0.2-1.0); Calcium 9.4 mg/dl (8.6-10.3); Creatinine Clr Calc Pharmacy 55.5 ml/min; Est GFR (African American) 82.2 ml/min; Est GFR (Non-African American) 70.9 ml/min; Globulin 2.4 gm/dl (2.5-4.0); Magnesium 1.8 mg/dl (1.7-2.4); Potassium 3.9 mmol/L (3.5-5.1); Total Protein 6.9 gm/dl (6.0-8.3)
[2024-03-29 08:30] LABS: Prothrombin Time 11.1 Seconds (9.0-12.0)
[2024-03-29 08:31] VITALS: RESP 17
--- NOTE | 2024-03-29 10:15 | Discharge Summary ---
Date of Service March 29, 2024 Admission HPI Per Admitting Provider Karie is a 68-year-old female with a past medical history significant for chronic constipation who presented to the [facility] ED on 03/26/2024 with complaints of nausea, vomiting, and diarrhea which began on 03/24/2024. She was noted to be hypertensive at 160/85 and bradycardic with heart rate in the 50s on arrival but otherwise stable. Labs were consistent with a lipase of 269 and UA with trace ketones and trace leukocyte Estrace. CT of the abdomen pelvis with contrast was read as negative for acute findings. Prior to admission the patient was given 1 L normal saline, 25 mg promethazine, 4 mg IV Zofran, 10 mg IV metoclopramide, and 4 mg IV morphine. Per chart review, the patient recently saw [facility] for follow-up on 03/20/2024 due to her chronic diarrhea. Per their note, patient has been unable to tolerate Linzess or Trulance due to causing diarrhea. She had been started on 8 mcg twice daily Amitiza previously without improvement in her constipation. The plan as of 03/20/2024 was to start taking 24 mcg Amitiza daily with the possibility of increasing to twice daily if needed. Patient was sitting on the edge of her bed and appeared very anxious at the time of the exam. History is obtained from the patient and her who was bedside. She confirms her long history of chronic constipation and inability to tolerate Linzess and Trulance in the past. States that she has been taking Colace twice daily over the past week. Started to develop nausea, nonbloody diarrhea, and multiple episodes of nonbloody emesis over the past 48 hours. When asked, she states that she took her first dose of 24 mcg Amitiza the evening of 03/25/2024 and took an additional dose this a.m. around 8:00. After clarification she confirmed that she took both of these doses after she was already experiencing diarrhea. When asked, she denies eating any restaurants or takeout food recently denies recent well water use or close contacts with similar symptoms. Denies recent fever, chills, chest pain, shortness of breath, abdominal pain, dysuria, hematuria, melena, lower extremity swelling, and recent trauma. She denies recent tobacco or alcohol use. I advised her to not take Amitiza If she is already experiencing diarrhea as this will significantly exacerbate diarrhea. Please refer to Dr. Costa's attestation for any changes to the treatment plan Admission Exam Per Admitting Provider General: Significantly anxious, stated age, Nontoxic-appearing HEENT: Normocephalic, atraumatic, no scleral icterus, pupils around round, symmetrical, and reactive to light, Dry mucus membranes, trachea midline, no thyromegaly Chest/Pulm: No respiratory distress, symmetrical chest expansion, clear breath sounds throughout Cardiac: RRR, no murmurs noted Abdomen: Negative for ascites and bruising, Hyperactive bowel sounds, soft, non- tender to palpation throughout Musculoskeletal: Symmetrical and without signs of acute trauma, upper and lower extremities with full ROM, no atrophy, spasticity, or flaccidity Extremities: Radial, dorsalis pedis, and posterior tibial pulses are intact and symmetrical, no edema noted in the BL LE's Skin: Warm, dry, no rashes , lesions, or scars noted Neuro: Alert and oriented to person, place, month, year, and president, no focal defects, no tremors noted Psych: Anxious but polite and cooperative during the exam Principal Diagnosis Vomiting and diarrhea due to high dose Amtizia Chronic constipation Discharge Exam General: Awake, conversant Heart: S1, S2/regular rate and rhythm, no murmur rubs or gallops Lungs: Clear to auscultation bilaterally. Normal effort Abdomen: Soft/nontender/nondistended. No hepatosplenomegaly Extremities: No clubbing/cyanosis. No edema Behavior: Appropriate, cooperative Discharge Data Allergies Allergy/AdvReac Type Severity Reaction Status Date / Time No Known Allergies Allergy Verified 03/26/24 20:15 Consultations 03/26/24 20:08 ED Decision to Admit Stat 03/26/24 20:35 Consult Gastroenterology Routine Ordered Studies 03/26/24 19:00 CT abd pelvis IV con only Stat Hospital Course (1) Vomiting and diarrhea: Presented to the ED due to ongoing and progressive nausea, nonbloody emesis, and nonbloody diarrhea Workup thus far has been unremarkable besides a mildly elevated lipase at 269, however, patient is without abdominal pain or CT evidence of pancreatitis Suspect the vast majority of her symptoms at this time are due to confusion regarding use of stool softeners and Amitiza Has not had another episode of diarrhea since arrival As needed Zofran for nausea and as needed Tylenol for pain Tolerated solid diet GI recommendations appreciated. Continue Amitiza 8 mcg p.o. twice daily. MiraLAX Follow-up with GI as per prior schedule (2) Anxiety: Seems to be better controlled now. Plan Discharge to home today Total Time Total Time Spent Total Time Spent (In Minutes): 35 Discharge Plan Discharge Items Patient Disposition: Home - Self-Care Reason For Visit: NAUSEA, VOMITING, DIARRHEA Discharge Diagnosis: Vomiting and diarrhea due to high dose Amtizia Chronic constipation Activity: Resume your previous activity Non-emergency contact: Primary Care Provider Call non-emergency contact if: you have any medication questions and your symptoms worsen Follow-up/Referrals: Bertha Caro MD [Primary Care Provider] - 04/07/24 1:00 pm Diet: Regular Addtl Attending Provider Instructions: Advised to follow-up with PCP in 1 week Advised to follow-up with GI per prior schedule Pending Studies at Discharge: No Stand-Alone Forms: My [facility] Medications and DC Order Prescriptions: New polyethylene glycol 3350 [Miralax] 17 gram Powder In Packet 17 g PO DAILY Qty: 14 0RF Continued mirtazapine 30 mg tablet 30 mg PO HS Qty: 90 3RF sertraline 50 mg tablet 50 mg PO DAILY 30 Days Qty: 30 0RF ondansetron HCl 4 mg tablet 4 mg PO Q8H PRN (Reason: nausea and vomiting) Qty: 30 0RF sennosides [Senokot] 8.6 mg tablet 8.6 mg PO DAILY PRN (Reason: Constipation) acetaminophen [Tylenol Extra Strength] 500 mg Tablet 1,000 mg PO Q6H PRN (Reason: PAIN/FEVER) docusate sodium [Stool Softener] 100 mg Capsule 100 mg PO BID PRN (Reason: Constipation) cyanocobalamin (vitamin B-12) 500 mcg tablet 500 mcg PO DAILY Qty: 30 0RF cholecalciferol (vitamin D3) [Vitamin D3] 25 mcg (1,000 unit) capsule 1,000 unit PO DAILY Qty: 30 0RF thiamine HCl (vitamin B1) [Vitamin B-1] 100 mg Tablet 100 mg PO DAILY Changed lubiprostone [Amitiza] 24 mcg capsule 8 mcg PO BID Qty: 60 2RF Discharge Orders: Discharge Order (Routine); Ordered 03/29/24 Ordered By: Yari Peacock Admission Data Admit Date/Time: 03/28/24 15:11 Attending Provider: Yari Peacock Admit Provider: Renaldo Costa Primary Care Provider: Bertha Caro Other Providers: Renaldo Costa; Ernst Davison I Other Interventions: Discharge Summary Assessment (RN) Last Done: 03/29/24 10:25
[2024-03-29 12:06] VITALS: BP 130/78; PULSE 65; O2SAT 95
[2024-03-29 12:42] LABS: Marijuana Quant, GCMS Urine 750 ng/mL (<5)
== END 2024-03-29 12:15 | disposition home or self-care (01) | DRG 392 ==
LOC: 3W 18:44 → ED 18:44 → SUATTDRO 20:21 → 3W 22:12